=== PATIENT | female | born 1940 | race Caucasian/White ===

== ENCOUNTER → 2017-02-05 | Day surgery (SDC) | payer OTHER, MEDICARE ==
[~2017-02-05] MED LIST: ACETAMINOPHEN 1000 MG/100 ML VIAL IV ONE; ADVAI250I; ALAW0.02 EACH EYE; ALBU6.7H INH; APREPITANT 40 MG CAP ONE; ATOR10TA PO; ISOSULFAN BLUE 50 MG/5 ML VIAL SQ ONE; LACTATED RINGER'S 1000 ML INJ 1,000 ML ONE; LEVO.15 PO; LIDOCAINE 1%/EPINEPHrine 1:100,000 SOLN 50 ML VIAL ONE; MIDAZOLAM HCL 2 MG/2 ML VIAL ONE; MONT10TA2 PO; NEBI5 PO; ONDANSETRON HCL 4 MG/2 ML VIAL IV PUSH ONE; PROPOFOL 200 MG/20 ML AMP IV ONE; REFR0.5D4 EACH EYE; SYSTSOL7 EACH EYE; TRIA1CAP; VANCOMYCIN HCL 1000 MG VIAL ONE; ZOLP1TAB32 PO
--- NOTE | 2017-02-25 08:38 | MP ---
cc: BRAYAN PELAYO MICHAEL A. M.D. YANCY ALLISON M.D. DATE OF SURGERY 02/05/2017 PROCEDURE 1. Excision sentinel lymph nodes right axilla x2. 2. Right breast needle-localized wide local excision. 3. Placement and removal of intraoperative radiotherapy probe. 4. Intraoperative ultrasound PREOPERATIVE DIAGNOSIS Invasive ductal carcinoma right breast. POSTOPERATIVE DIAGNOSIS Invasive ductal carcinoma right breast. ANESTHESIA LMA SURGEON Diallo Hankins MD ESTIMATED BLOOD LOSS 30 mL FLUIDS 1150 mL crystalloid COMPLICATIONS None DRAINS None SPECIMEN [place] lymph nodes right axilla and breast wide local excision to pathology. PROCEDURE IN DETAIL The patient was taken to the Department of Nuclear Medicine where she underwent injection with technetium 99 sulfur colloid. She then returned to the Department of Nuclear Medicine after undergoing needle localization procedure in the right breast and had lymphoscintigraphy mapping. The nodes in the right axilla were noted. The patient was then taken to the operating room and placed on the operating table in the supine position. After an adequate level of general endotracheal anesthesia was achieved, the right breast was prepped with the axilla and draped. Time-out was taken confirming the correct patient, site and procedures to be performed. Dissection was then started on the breast. A circumareolar incision was made in the upper portion of the breast midway between the needle insertion site and the nipple-areolar complex. Dissection was carried out superiorly to the needle which was cut at the skin and brought into the wound. A sphere of tissue was removed down to the muscle keeping the needle in the center as much as possible. The specimen was oriented with silk sutures and passed off the table. Specimen mammogram confirmed the micro clip to be present within the specimen and the lesion to be essentially within the center. An additional deep margin was taken as it was felt that the specimen was slightly eccentric with a question of the deep margin being close. Thus dissection was carried down to the muscle itself. At this point, preparations were made for intraoperative radiotherapy. A #1 Prolene suture was utilized in a deep fashion to create a pursestring suture and create a more spherical cavity. A second suture was placed in the subcutaneous tissues superficially and then 4.5 intraoperative radiotherapy sizing ball was placed into the cavity. The 4.5 insert fit with no openings. The positioning was confirmed with ultrasound with a greater than 1 cm bridge between the skin and the surface of the sphere. Sterile drapes were then placed around the sizer after bringing the instrument in and connecting it to the sizer. There were no air cavities around the sizer and at this point, the more superficial pursestring suture was cinched down. Lead abdullahi were then placed after placing a wet lap over the surface of the skin. The radiation therapist then performed the intraoperative radiotherapy portion of the procedure. Please see their dictation for this. After this was completed, the undersigned scrubbed back into the case, the lead abdullahi and drape were removed. The superficial pursestring suture was cut and the radiotherapy devices probe was removed. The instrument was slid back and the cavity examined and seen to be clean and dry. The deep Prolene suture was removed at this point and the wound closed in two layers with interrupted 3-0 Vicryl suture and 5-0 PDS in a running subcuticular fashion. Attention was then turned to the axilla where an incision was made directly over the area where the lymph nodes were indicated to be located. The dissection was carried down and by guiding with the navigator probe, the lymph nodes were easily identified and excised. The wound was made hemostatic and after no activity in the background was noted, the two lymph nodes were submitted for specimen analysis. The axillary wound was closed in two layers with interrupted 3-0 Vicryl suture and 5-0 PDS in a running subcuticular fashion. Both wounds were dressed with Steri-Strips. The patient was extubated and taken back to the recovery room in stable condition. She tolerated the procedure well. MD ATIF Leger/AFSANEH /7:58 AM /8:27 AM NELL
== END | disposition home or self-care (01) ==
LOC: ESDC 09:40
PROVIDERS: ATTEND Surgery Trauma Surgery
DX: D05.11 Intraductal carcinoma in situ of right breast (principal)
CPT/HCPCS: 00400; 01610; 19125; 38525; 77290; 77300; 77334; 77370; 77424; 88305; 88307; J0131; J2250; J2405; J3010; J3370; J7120; J8501; 77469; Q9968

== ENCOUNTER → 2017-06-24 | Day surgery (SDC) | payer OTHER, MEDICARE ==
[~2017-06-24] VITALS: Ht 154.9 cm; Wt 83.0 kg
[~2017-06-24] MED LIST changes: -ACETAMINOPHEN 1000 MG/100 ML VIAL IV ONE; +ADVA250A INH; -ADVAI250I; +AMBI5TAB PO; +ANAS1TAB PO; -APREPITANT 40 MG CAP ONE; -ATOR10TA PO; +ATOR10TA15 PO; +BUPIVACAINE HCL PF 0.5% 30 ML VIAL ONE; +BYST5TAB2 PO; +CHLORHEXIDINE GLUCONATE 2 % 1 PACK (2 CLOTHS) TOPICAL PRN; +CIPR250T52 PO; +CIPROFLOXACIN 400 MG PREMIX 200 ML IV SCH; +FAMOTIDINE 20 MG/2 ML VIAL ONE; +INSULIN HUMAN REGULAR 1,000 UNITS/10 ML VIAL SQ PRN; -ISOSULFAN BLUE 50 MG/5 ML VIAL SQ ONE; -LACTATED RINGER'S 1000 ML INJ 1,000 ML ONE; +LACTATED RINGER'S 1000 ML IV PRN; -LIDOCAINE 1%/EPINEPHrine 1:100,000 SOLN 50 ML VIAL ONE; +LIDOCAINE 2%/EPINEPHrine PF 1:200,000 20ML SDV ONE; +LIDOCAINE HCL 2% 50 ML VIAL ONE; +METOPROLOL TARTRATE 25 MG TAB PO PRN; -NEBI5 PO; +NEOMYCIN/POLYMYXIN 1 ML G.U. IRRIGANT ONE; +NORC5TAB PO; -ONDANSETRON HCL 4 MG/2 ML VIAL IV PUSH ONE; +POVIDONE IODINE 5% (ANTISEPSIS KIT) 4 APPLICATIONS EACH NARE PRN; -REFR0.5D4 EACH EYE; +REFRDRO EACH EYE; +SODIUM CHLORID 0.9% 500 ML IV PRN; -SYSTSOL7 EACH EYE; -TRIA1CAP; +TRIA37.53 PO; -VANCOMYCIN HCL 1000 MG VIAL ONE; -ZOLP1TAB32 PO
[2017-06-24 07:11] LABS: HEMATOCRIT 39.2 % (35.0-46.0); MEAN CELL VOLUME 82.3 FL (80.0-100.0); MEAN CORPUSCULAR HGB CONC 32.8 % (32.0-36.0); PLATELET COUNT 319 TH/MM3 (150-450); RED BLOOD COUNT 4.76 MIL/MM3 (4.00-5.30); RED CELL DISTRIBUTION WIDTH 12.4 % (11.6-17.2); REVIEW FLAG FINAL; WHITE BLOOD COUNT 8.8 TH/MM3 (4.0-11.0)
--- NOTE | 2017-06-24 09:24 | MP ---
cc: MICHAEL ALONZO III, M.D. DATE OF SURGERY 06/24/2017 PREOPERATIVE DIAGNOSIS Left carpal tunnel syndrome POSTOPERATIVE DIAGNOSIS Left carpal tunnel syndrome PROCEDURE Left open carpal tunnel release. SURGEON Michael Alonzo III, MD PROCEDURE The patient was brought to the operating room, placed supine on the operating table. After the correct site and side of surgery were verified by members of each team multiple times including the patient and myself. After adequate preop markings and preoperative written consent were verified by everyone and after adequate preop time-out was performed to everyone's satisfaction and after adequate IV sedation had been achieved, the left upper extremity was prepped and draped in the traditional sterile surgical fashion. A 50/50 mixture of 2% plain lidocaine, 0.5% plain Marcaine was infiltrated to the skin and subcutaneous tissue at the base of the palm and into the carpal tunnel. The limb was exsanguinated with a gentle Sami wrap and a highly placed well-padded axillary tourniquet was inflated to 200 mmHg for a total of 13 minutes. A longitudinally oriented incision at the base of palm within the skin crease was made and carried down through skin and subcutaneous tissue. Blunt dissection was performed. The palmar fascia was retracted and then a transverse carpal ligament was identified and divided in its midline in its entirety from its proximal to its distal most extent. There was noticeable rebound on the median nerve. There were no other anatomic abnormalities. No mass effect. Thorough irrigation was performed with saline. The skin edges were then reapproximated using running and interrupted 4-0 nylon sutures. The hand and arm were thoroughly cleansed and dried. Betadine and Adaptic dressings were applied on top of the wound followed by a bulky soft dressing circumferential in the usual fashion. The patient was awakened from anesthesia and transported to the Post Anesthesia Care Unit awake and in stable condition at the end of the case. The sponge, needle, and instrument counts were correct at the end of the case as reported by nurses in the room. MD CHRISTINA Johns III/AFSANEH /8:55 AM /9:14 AM
[2017-06-24 09:50] VITALS: BP 142/72; PULSE 74; RESP 16; TEMP 98; O2SAT 97
--- NOTE | 2017-06-24 14:43 | EKG ---
Date Performed: 06/24/2017 Time Performed: 07:17:26 PTAGE: 76 years EKG: Sinus rhythm NORMAL ECG PREVIOUS TRACING : 05/06/2012 09.50 Compared to prior tracing no significant change DOCTOR: Bertha Inman Interpretating Date/Time 06/24/2017 14:42:13
== END | disposition home or self-care (01) ==
LOC: PHSDC 06:09
PROVIDERS: ATTEND Orthopaedic Surgery Hand Surgery
DX: G56.02 Carpal tunnel syndrome, left upper limb (principal); Z01.810 Encounter for preprocedural cardiovascular examination
CPT/HCPCS: 01810; 36415; 64721; 85027; 93005; J0744; J2250; J7120

== ENCOUNTER → 2018-03-24 | Outpatient (CLI) | payer OTHER, MEDICARE ==
[~2018-03-24] MED LIST changes: -BUPIVACAINE HCL PF 0.5% 30 ML VIAL ONE; -CHLORHEXIDINE GLUCONATE 2 % 1 PACK (2 CLOTHS) TOPICAL PRN; -CIPR250T52 PO; -CIPROFLOXACIN 400 MG PREMIX 200 ML IV SCH; -FAMOTIDINE 20 MG/2 ML VIAL ONE; -INSULIN HUMAN REGULAR 1,000 UNITS/10 ML VIAL SQ PRN; -LACTATED RINGER'S 1000 ML IV PRN; -LIDOCAINE 2%/EPINEPHrine PF 1:200,000 20ML SDV ONE; -LIDOCAINE HCL 2% 50 ML VIAL ONE; -METOPROLOL TARTRATE 25 MG TAB PO PRN; -MIDAZOLAM HCL 2 MG/2 ML VIAL ONE; -NEOMYCIN/POLYMYXIN 1 ML G.U. IRRIGANT ONE; -NORC5TAB PO; -POVIDONE IODINE 5% (ANTISEPSIS KIT) 4 APPLICATIONS EACH NARE PRN; -PROPOFOL 200 MG/20 ML AMP IV ONE; -SODIUM CHLORID 0.9% 500 ML IV PRN
--- NOTE | 2018-03-26 08:12 | RSPPFT ---
DATE OF PROCEDURE: 03/24/18 COMMENTS: Spirometry shows FVCof 1.8 at 79% of predicted, FEV1 of 2.2 at 60%, FEV1/FVC ratio is decreased. Flow is decreased at FEF 25, FEF 50, FEF 75 and FEF 25-75. There is no response after bronchodilator treatment. Lung volumes show residual volume is increased. TLC is normal. Diffusion capacity is normal. Flow volume loop indicates an obstructive pattern. IMPRESSION: 1. Mild obstructive lung disease. 2. No response after bronchodilator treatment. 3. Lung volumes show mild hyperinflation. 4. Normal diffusion capacity.
== END ==
LOC: HRSP 12:05
PROVIDERS: ATTEND Specialist
DX: J45.20 Mild intermittent asthma, uncomplicated (principal)
CPT/HCPCS: 94060; 94726; 94729

== ENCOUNTER 2018-08-17 04:54 | Inpatient (IN) ==
[2018-08-17] MEDS ORDERED: Ketorolac Inj 30 MG/ML (IVP) Vial IV.PUSH ONE (05:50)
--- NOTE | 2018-08-17 06:42 | XR ---
EXAM DATE: 08/17/2018 6:21 AM EST AGE/SEX: 77 years / Female INDICATIONS: Knee pain. CLINICAL DATA: This is the patient's initial encounter. Patient reports that signs and symptoms have been present for 1 day and indicates a pain score of 9/10. MEDICAL/SURGICAL HISTORY: Arthritis. Chronic obstructive pulmonary disease. Carcinoma, breast . Asthma. Hypertension. Cholecystectomy. Tubal ligation. Carpal tunnel syndrome. COMPARISON: No prior exams available for comparison. FINDINGS: 4 views of the left knee. Bone alignment within normal limits. No evidence of fracture. Moderate-size d tricompartment osteophytes. Large joint effusion. Moderate patellofemoral compartment narrowing. Po ssible posterior and suprapatellar recess osteochondral bodies. CONCLUSION: 1. Osteoarthritic findings of the knee with patellofemoral compartment predominance. 2. Large joint effusion with possible intra-articular osteochondral bodies. Electronically signed by: Miguel Barker MD 08/17/2018 6:40 AM EST
[2018-08-17 06:44] LABS: Baso % (Auto) 0.3 % (0.0-2.0); Eos # (Auto) 0.2 th/mm3 (0.0-0.4); Eos % (Auto) 1.4 % (0.0-4.0); Hematocrit 37.8 % (35.0-46.0); Lymph # (Auto) 2.1 th/mm3 (1.0-4.8); Lymph % (Auto) 13.9 % (9.0-44.0); Mean Corpuscular HGB Conc 34.5 % (32.0-36.0); Mean Corpuscular Hemoglobin 29.1 pg (27.0-34.0); Mean Corpuscular Volume 84.5 fL (80.0-100.0); Mean Platelet Volume 9.4 fL (7.0-11.0); Mono # (Auto) 1.2 th/mm3 (0.0-0.9); Mono % (Auto) 7.9 % (0.0-8.0); Neut # (Auto) 11.6 th/mm3 (1.8-7.7); Neut % (Auto) 76.5 % (16.0-70.0); Platelet Count 277 th/mm3 (150-450); Red Blood Count 4.47 mil/mm3 (4.00-5.30); Red Cell Distribution Width 13.1 % (11.6-17.2); White Blood Count 15.2 th/mm3 (4.0-11.0)
--- NOTE | 2018-08-17 06:47 | ED ---
HPI General Chief complaint: Medical Clearance Stated complaint: L knee pain Time Seen by Provider: 08/17/18 05:25 Source: patient Limitations: no limitations History of Present Illness HPI narrative: The patient is a 77 year old female who presents to the [facility] emergency department with a history of right knee pain that began yesterday at approximately 5 PM. She reports that she was at work when she started to feel a clicking in her left knee. She denies any trauma or specific injury to the site. She has a history of arthritis, however she has not had problems in this knee in the past. The patient reports that she has been in the process of having worsening back pain and right shoulder pain worked up. She reports that she had an DANYEL done that was positive, however her sedimentation rate at that time was negative and her rheumatoid factor was also negative. Additional laboratory tests have been ordered by her primary care physician which she was going to complete later today. She reports that the knee became increasingly painful. She reports that it became severe in the evening and she took 2 hydrocodone without relief. The patient reports the pain is worse with bending her knee. She reports that it feels swollen and warm to the touch. She denies having any fevers. On review of systems otherwise, the patient denies having any cough, congestion, neck pain, chest pain, shortness of breath, abdominal pain, vomiting, diarrhea, urinary symptoms, or neurologic symptoms. Related Data Home Medications Medication Instructions Recorded Confirmed albuterol sulfate [Proventil HFA] 2 puff INHALATION Q4-6H PRN 08/17/18 08/17/18 albuterol sulfate [Ventolin HFA] 2 puff INHALATION Q4-6H PRN 08/17/18 08/17/18 alprazolam 0.25 mg PO DAILY 08/17/18 08/17/18 atorvastatin 10 mg PO DAILY 08/17/18 08/17/18 atorvastatin [Lipitor] 10 mg PO DAILY 08/17/18 08/17/18 levothyroxine [Synthroid] 150 mcg PO DAILY 08/17/18 08/17/18 montelukast [Singulair] 10 mg PO QPM 08/17/18 08/17/18 nebivolol [Bystolic] 5 mg PO DAILY 08/17/18 08/17/18 triamterene-hydrochlorothiazid 1 cap PO DAILY 08/17/18 08/17/18 zolpidem 10 mg PO DAILY 08/17/18 08/17/18 Allergies Allergy/AdvReac Type Severity Reaction Status Date / Time cefadroxil Allergy Severe HIVES Verified 08/31/17 09:27 morphine Allergy Severe VOMITING Verified 08/31/17 09:27 adhesive AdvReac Intermediate Verified 08/31/17 09:27 Review of Systems ROS: all other systems reviewed are negative [facility] Medical History Medical History Arthritis (Acute) Asthma (Acute) Breast cancer (Acute) COPD (chronic obstructive pulmonary disease) (Acute) Degenerative disc disease (Acute) HTN (hypertension) (Acute) Hypercholesteremia (Acute) Hypothyroid (Acute) Menieres disease (Acute) Surgical History Surgical History H/O lumpectomy (Acute) History of carpal tunnel surgery (Acute) Hx of cholecystectomy (Acute) Social History Social History Substance History: No History of Abuse Second Hand Smoke Exposure: No Smoking Status: Never smoker How Often Do You Have a Drink Containing Alcohol: Never Recent Travel in [facility] within the Last 8 Weeks: No Recent Out of Country Travel within the Last 8 Weeks: No Immunization History Tetanus Immunization: Never Vaccinated Exam Const General: cooperative and acute distress (Reportedly related to left knee pain.) mild Nutritional Appearance: well nourished Orientation: alert, awake and oriented x3 HENMT Head: normocephalic and atraumatic Nose: no nasal discharge and no epistaxis Mouth: moist mucous membranes Throat: posterior oropharynx normal and uvula midline Eyes Sclera: normal sclerae Pupils: PERRL Neck Neck: no meningeal signs, trachea midline and no JVD Resp Effort & Inspection: no use of accessory muscles Auscultation: clear to auscultation bilaterally Cardio Rate: regular rate Rhythm: regular rhythm Heart Sounds: no murmurs GI Inspection: non-distended Palpation: soft, no hepatosplenomegaly, no guarding, not rigid and nontender Auscultation: normal bowel sounds Back/Spine/Pelvis Back: no CVA tenderness Skin General: dry skin (warm) Neuro General: alert, awake, oriented x3 and other (Grossly nonfocal.) Speech: speech normal Motor: no movement abnormalities noted Extrem General: no clubbing, no cyanosis and other (2+ pulses in all 4 extremities. Trace pedal edema bilateral lower extremities. The area of interest is the left knee. The patient reports pain with any attempts at flexion of the left knee. The patient reports having left lateral joint line tenderness on palpation and to a lesser extent medial joint line tenderness on palpation. The patient has no ligament laxity. The patient has no ballotable patella. Patient has some crepitus with attempts at flexion and extension. No deformity noted. No erythema. No warmth on palpation.) Psych Mood: congruent mood Affect: normal affect Judgment: judgment good Course Initial Documented Vital Signs Temperature 97.4 F L 08/17/18 05:03 Pulse Rate 76 08/17/18 05:03 Respiratory Rate 18 08/17/18 05:03 Blood Pressure 170/75 H 08/17/18 05:03 Pulse Oximetry 97 08/17/18 05:03 Last Documented Vital Signs Temperature 99.1 F 08/17/18 16:52 Pulse Rate 73 08/17/18 14:03 Respiratory Rate 18 08/17/18 14:03 Blood Pressure 144/68 H 08/17/18 14:03 Pulse Oximetry 99 08/17/18 14:03 Sign Out Sign Out Data: Patient Sign Out occurred on 08/17/18 at 07:38. Patient's care was discussed, and care was transferred from Kiana Corbett MD to Matt Byers DO. Sign Out Comment: The patient's case is checked out to the oncoming emergency physician to disposition the patient based on the conclusion of the patient's workup. The patient is pending ultrasound, laboratory studies, and reexamination for improvement. Last updated by Kiana Corbett MD at 08/17/18 07:00 Medical Decision Making MDM Narrative Medical decision making narrative: During the course of the patient's emergency department visit, the patient's history, examination, and differential diagnosis were reviewed with the patient. The patient was placed on a fish and game warden with oximetry and frequent blood pressure monitoring. The patient had IV access obtained and blood work sent for analysis. Diagnostic evaluation was started regarding the patient's left knee pain. The patient was initially provided Toradol 15 mg IV. The patient had an x-ray done of the left knee that shows osteoarthritic findings of the knee with patellofemoral compartment predominance, large joint effusion with possible intra-articular osteochondral bodies. The patient is pending laboratory studies and ultrasound to rule out DVT. The patient is pending these results at the conclusion of my shift. The patient's case will be checked out to the oncoming emergency physician to disposition the patient based on the conclusion of her workup. Patient had a arthrosis centesis by IR that revealed pus within the synovial fluid elevated WBCs and markedly elevated RBCs. Discussed with Dr. Wray who decided to take the patient to the OR for surgical intervention. The patient will be admitted to medicine get evaluated. Dr. Wray did not want any antibiotics to be given. Medical Screen Exam Complete: Yes Emergency Medical Condition: Yes Differential Diagnosis Differential Diagnosis: Osteoarthritis, versus inflammatory arthritis, versus septic joint, versus gout, versus internal derangement of the knee, versus stress fracture Medical Records Medical records reviewed: Yes I reviewed the patient's medical records. Lab Data Result diagrams: 08/17/18 05:50 08/17/18 05:50 Lab Results 08/17/18 08/17/18 08/17/18 Range/Units 05:50 05:50 05:50 WBC 15.2 H (4.0-11.0) th/mm3 RBC 4.47 (4.00-5.30) mil/mm3 Hgb 13.0 (11.6-15.3) gm/dL Hct 37.8 (35.0-46.0) % MCV 84.5 (80.0-100.0) fL MCH 29.1 (27.0-34.0) pg MCHC 34.5 (32.0-36.0) % RDW 13.1 (11.6-17.2) % Plt Count 277 (150-450) th/mm3 MPV 9.4 (7.0-11.0) fL Neut % (Auto) 76.5 H (16.0-70.0) % Lymph % (Auto) 13.9 (9.0-44.0) % [place] % (Auto) 7.9 (0.0-8.0) % Eos % (Auto) 1.4 (0.0-4.0) % Baso % (Auto) 0.3 (0.0-2.0) % Neut # (Auto) 11.6 H (1.8-7.7) th/mm3 Lymph # (Auto) 2.1 (1.0-4.8) th/mm3 [place] # (Auto) 1.2 H (0.0-0.9) th/mm3 Eos # (Auto) 0.2 (0.0-0.4) th/mm3 Baso # (Auto) 0.0 (0.0-0.2) th/mm3 WBC Differential . Differential Comment Auto diff final ESR (0-30) mm/hr PT 10.4 (9.8-11.6) sec INR 1.0 Ratio APTT 27.4 (23.4-31.7) sec Sodium 135 L (136-145) meq/L Potassium 3.1 L (3.5-5.1) meq/L Chloride 97 L (98-107) meq/L Carbon Dioxide 28.2 (21.0-32.0) meq/L Anion Gap 10 (5-15) meq/L BUN 18 (7-18) mg/dL Creatinine 0.93 (0.50-1.00) mg/dL Estimated GFR 59 L (>89) mL/min POC Glucose (68-110) mg/dl Random Glucose 154 H (74-106) mg/dL Calcium 8.7 (8.5-10.1) mg/dL Synovial Color (Straw) Synovial Appearance (Clear) Synovial RBC (0-0) /mm3 Synovial Nuc Cells (0-200) /mm3 Synovial Neutrophils (0-25) % Synovial Lymphocytes % Synovial Monocytes % Synovial Crystals (None) 08/17/18 08/17/18 08/17/18 Range/Units 05:50 12:20 12:20 WBC (4.0-11.0) th/mm3 RBC (4.00-5.30) mil/mm3 Hgb (11.6-15.3) gm/dL Hct (35.0-46.0) % MCV (80.0-100.0) fL MCH (27.0-34.0) pg MCHC (32.0-36.0) % RDW (11.6-17.2) % Plt Count (150-450) th/mm3 MPV (7.0-11.0) fL Neut % (Auto) (16.0-70.0) % Lymph % (Auto) (9.0-44.0) % [place] % (Auto) (0.0-8.0) % Eos % (Auto) (0.0-4.0) % Baso % (Auto) (0.0-2.0) % Neut # (Auto) (1.8-7.7) th/mm3 Lymph # (Auto) (1.0-4.8) th/mm3 [place] # (Auto) (0.0-0.9) th/mm3 Eos # (Auto) (0.0-0.4) th/mm3 Baso # (Auto) (0.0-0.2) th/mm3 WBC Differential Differential Comment ESR 35 H (0-30) mm/hr PT (9.8-11.6) sec INR Ratio APTT (23.4-31.7) sec Sodium (136-145) meq/L Potassium (3.5-5.1) meq/L Chloride (98-107) meq/L Carbon Dioxide (21.0-32.0) meq/L Anion Gap (5-15) meq/L BUN (7-18) mg/dL Creatinine (0.50-1.00) mg/dL Estimated GFR (>89) mL/min POC Glucose (68-110) mg/dl Random Glucose (74-106) mg/dL Calcium (8.5-10.1) mg/dL Synovial Color Red H (Straw) Synovial Appearance Bloody H (Clear) Synovial RBC 8189281 H (0-0) /mm3 Synovial Nuc Cells 55496 H (0-200) /mm3 Synovial Neutrophils 90 H (0-25) % Synovial Lymphocytes 3 % Synovial Monocytes 7 % Synovial Crystals None (None) 08/17/18 Range/Units 18:19 WBC (4.0-11.0) th/mm3 RBC (4.00-5.30) mil/mm3 Hgb (11.6-15.3) gm/dL Hct (35.0-46.0) % MCV (80.0-100.0) fL MCH (27.0-34.0) pg MCHC (32.0-36.0) % RDW (11.6-17.2) % Plt Count (150-450) th/mm3 MPV (7.0-11.0) fL Neut % (Auto) (16.0-70.0) % Lymph % (Auto) (9.0-44.0) % [place] % (Auto) (0.0-8.0) % Eos % (Auto) (0.0-4.0) % Baso % (Auto) (0.0-2.0) % Neut # (Auto) (1.8-7.7) th/mm3 Lymph # (Auto) (1.0-4.8) th/mm3 [place] # (Auto) (0.0-0.9) th/mm3 Eos # (Auto) (0.0-0.4) th/mm3 Baso # (Auto) (0.0-0.2) th/mm3 WBC Differential Differential Comment ESR (0-30) mm/hr PT (9.8-11.6) sec INR Ratio APTT (23.4-31.7) sec Sodium (136-145) meq/L Potassium (3.5-5.1) meq/L Chloride (98-107) meq/L Carbon Dioxide (21.0-32.0) meq/L Anion Gap (5-15) meq/L BUN (7-18) mg/dL Creatinine (0.50-1.00) mg/dL Estimated GFR (>89) mL/min POC Glucose 144 H (68-110) mg/dl Random Glucose (74-106) mg/dL Calcium (8.5-10.1) mg/dL Synovial Color (Straw) Synovial Appearance (Clear) Synovial RBC (0-0) /mm3 Synovial Nuc Cells (0-200) /mm3 Synovial Neutrophils (0-25) % Synovial Lymphocytes % Synovial Monocytes % Synovial Crystals (None) Imaging Data Radiologist's impression: Knee X-Ray 08/17/18 05:49 CONCLUSION: 1. Osteoarthritic findings of the knee with patellofemoral compartment predominance. 2. Large joint effusion with possible intra-articular osteochondral bodies. Venous Doppler Study 08/17/18 05:49 CONCLUSION: 1. The study is negative for lower extremity deep venous thrombosis. Knee CT 08/17/18 07:39 CONCLUSION: 1. Advanced tricompartmental osteoarthritis. 2. Moderate joint effusion. 3. Faint calcifications could relate to free bodies within the joint. I see no ostial defect but CT is very limited in evaluating for cartilaginous defects. MRI is more sensitive and specific for this evaluation. Aspiration 08/17/18 11:36 CONCLUSION: Uncomplicated ultrasound-guided left knee joint aspiration as above. ECG Data Attestation: I personally reviewed and interpreted this ECG as follows: Interpretation: The patient had an EKG done on arrival that shows a sinus rhythm heart rate is 77, TC [address] segment elevation is noted. T waves are inverted in V1. Discharge Plan Discharge Disposition Patient Disposition: 30 Still Patient Discharge Condition Condition: Stable Discharge Details Diagnosis: Septic arthritis Physicians Team ED Provider: Matt Byers Primary Care Provider: Primary Care Darlene Miller Attending Provider: Jessica Irwin Other Providers: Pablo Wray Status ED Status: Admitted Observation Patient
[2018-08-17 06:52] LABS: Activated Partial Thrombo Time 27.4 sec (23.4-31.7); Prothrombin Time 10.4 sec (9.8-11.6)
[2018-08-17 06:59] LABS: Calcium 8.7 mg/dL (8.5-10.1); Carbon Dioxide 28.2 meq/L (21.0-32.0); Potassium 3.1 meq/L (3.5-5.1)
--- NOTE | 2018-08-17 07:48 | US ---
EXAM DATE: 08/17/2018 7:40 AM EST AGE/SEX: 77 years / Female INDICATIONS: Left knee pain. CLINICAL DATA: This is the patient's initial encounter. Patient reports that signs and symptoms have been present for 1 day and indicates a pain score of 4/10. MEDICAL/SURGICAL HISTORY: . Right breast cancer. COPD. Hypertension. Hypothyroidism. Meniere's disease. Arthritis. Asthma. Cholecystectomy. Lumpectomy, right breast. Carpal tunnel surgery. COMPARISON: [facility], US LEG VENOUS DOPPLER, RIGHT, 02/19/2018. . TECHNIQUE: Venous ultrasound of both lower extremities was performed from the inguinal ligament to t he proximal calf. Real-time, color Doppler and spectral tracing, compression and augmentation techni ques were used. FINDINGS: Normal compression of the deep venous system from the inguinal region to the proximal calf . No echogenic clot is seen. Normal response of the venous system to augmentation and respiration. CONCLUSION: 1. The study is negative for lower extremity deep venous thrombosis. Electronically signed by: Chele Shelby MD 08/17/2018 7:47 AM EST
--- NOTE | 2018-08-17 08:42 | CT ---
EXAM DATE: 08/17/2018 8:23 AM EST AGE/SEX: 77 years / Female INDICATIONS: Left suprapatellar pain and swelling. Abnormal x-ray. No known trauma. CLINICAL DATA: This is the patient's initial encounter. Patient reports that signs and symptoms have been present for 1 day and indicates a pain score of 7/10. MEDICAL/SURGICAL HISTORY: Carcinoma, breast. Chronic obstructive pulmonary disease. Hypertension. Meniere's disease. None. RADIATION DOSE: 9.50 CTDI (mGy) COMPARISON: [facility], KNEE COMPLETE LEFT 4V, 08/17/2018.. . TECHNIQUE: Multiple contiguous axial images were acquired using a multirow detector CT scanner witho ut contrast. Multiplanar reconstruction was performed in the sagittal and coronal planes. Using aut omated exposure control and adjustment of the mA and/or kV according to patient size, radiation dose was kept as low as reasonably achievable to obtain optimal diagnostic quality images. DICOM format i mage data is available electronically for review and comparison. FINDINGS: No fracture or dislocation observed. There is tricompartmental osteoarthritis with joint space narrow ing and osteophyte production. It is most pronounced within the patellofemoral compartment but does i nvolve all 3 compartments. There are faint calcifications seen amongst a moderate size joint effusion within the suprapatella area. The largest measures 4 mm. These could relate to free bodies within th e joint space. I see no clear ostial defect. Faint calcification is seen involving the menisci as wel l as the posterior cruciate ligament. Atherosclerotic calcification is noted involving popliteal mouna ry. No radiopaque foreign bodies. CONCLUSION: 1. Advanced tricompartmental osteoarthritis. 2. Moderate joint effusion. 3. Faint calcifications could relate to free bodies within the joint. I see no ostial defect but CT is very limited in evaluating for cartilaginous defects. MRI is more sensitive and specific for this evaluation. Electronically signed by: Chele Shelby MD 08/17/2018 8:40 AM EST
[2018-08-17] MEDS ORDERED: Lidocaine PF 1% Inj 30 ML Vial INFILTRATN ONE (09:52)
--- NOTE | 2018-08-17 13:18 | ECG ---
Date Performed: 08/17/2018 Time Performed: 06:03:47 PTAGE: 77 years EKG: Sinus rhythm MARKED LEFT AXIS DEVIATION POSSIBLE ANTERIOR MYOCARDIAL INFARCTION ABNORMAL ECG Since the PREVIOUS TRACING , no significant change noted PREVIOUS TRACIN06/24/2017 07.17 DOCTOR: Katia Montoya Interpretating Date/Time 08/17/2018 13:17:25
[2018-08-17 13:53] LABS: Appearance,Synovial Fluid Bloody (Clear); Color,Synovial Fluid Red (Straw)
[2018-08-17 13:56] LABS: Lymphocytes,Synovial Fluid 3 %; Neutrophils,Synovial Fluid 90 % (0-25)
--- NOTE | 2018-08-17 15:20 | IR ---
EXAM DATE: 08/17/2018 12:49 PM EST AGE/SEX: 77 years / Female INDICATIONS: Patient with a history of left knee effusion. CLINICAL DATA: This is the patient's initial encounter. Patient reports that signs and symptoms have been present for 2 days and indicates a pain score of 6/10. MEDICAL/SURGICAL HISTORY: . Arthritis Asthma Breast Cancer COPD Degenerative Disc DiseaseHTNHyp ercholesteremiaHypothyroidMenieres disease . Lumpectomy Carpal tunnel surgery Cholecystectomy COMPARISON: [facility] [place]/O [place], 08/17/2018. . FLUORO TIME (min): 0 IMAGE SERIES: 1 DEVICE(S): 25 gauge needle was placed into the Left knee joint RESPONSE: Pain Score Pre Procedure: 6/10 Pain Score Post Procedure: 0/10 FLUID: Total volume of 25 cc of clear, red fluid was removed. Fluid was sent to lab for ordered studies. . . PROCEDURE : 1. Fluoroscopically guided left knee joint aspiration. The risks, benefits and alternatives to the procedure were explained and verbal and written consent w as obtained. The site was prepped in sterile fashion. Full sterile technique was used, including ca p, mask, sterile gloves and gown and a large sterile sheet. Hand hygiene and 2% chlorhexidine and/or betadine/alcohol prep was utilized per protocol for cutaneous antisepsis. The skin and subcutaneous tissues were infiltrated with local anesthetic solution. Under direct ultrasound guidance, the suprapatellar bursa was accessed with an 18-gauge needle from a lateral suprapatellar approach. Approximately 25 mL's of bloody joint fluid was aspirated and submit juventino for requested lab evaluation. The patient tolerated the procedure well and there were no complications. CONCLUSION: Uncomplicated ultrasound-guided left knee joint aspiration as above. Electronically signed by: Shine Munguia MD 08/17/2018 3:18 PM EST
[2018-08-17] MEDS ORDERED: Dextrose 50% in Water 50 ML Vial IV.PUSH ONE (17:03)
--- NOTE | 2018-08-17 18:18 | P.CONOP ---
[facility] Orthopedics Consult Note - [facility] Consult date: 08/17/18 Chief complaint: L knee pain Narrative: This is a 77-year-old female who presented to [facility] emergency room with points of left knee pain. The patient states that the knee pain just began yesterday. She started feeling a clicking about the knee. She denies any injuries or wounds about the knee. She denies having other sources of pain in the body or other sources of infection such as a productive cough or urinary problems. Patient when she presented to the hospital was found to have a knee joint effusion and significant loss of range of motion. ER physician had contacted us we recommended to have an aspiration of the knee because the patient had increased ESR and increased white cell count and we were concerned about a possible septic knee. The patient denies having history of rheumatoid arthritis but does say that she has generalized arthritis. The patient did have the aspiration which was suspicious for infection. She has difficulty ambulating because of the pain. She says the pain is so bad that is causing her to be nauseous. Family history is noncontributory. Daughter is at the bedside. 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 Review of Systems All other systems reviewed negative except as stated in HPI (Note that she denies fevers), unobtainable due to endotracheal tube PMFSH - History History Provided By: Patient - Medical History Medical History: Medical History (Last Updated 08/17/18 @ 06:40 by Kiana Corbett MD) Arthritis Asthma Breast cancer COPD (chronic obstructive pulmonary disease) Degenerative disc disease HTN (hypertension) Hypercholesteremia Hypothyroid Menieres disease - Surgical History Surgical History: Surgical History (Last Reviewed 08/17/18 @ 06:39 by Kiana Corbett MD) H/O lumpectomy History of carpal tunnel surgery Hx of cholecystectomy - Tobacco History Second Hand Smoke Exposure: No Tobacco Use In Past 30 Days: No Smoking Status: Never smoker - Alcohol History How Often Do You Have a Drink Containing Alcohol: Never - Substance Use History Substance History: No History of Abuse - Travel History Recent Travel in the [place] Within the Last 8 Weeks: No Recent Travel Out of the Country Within the Last 8 Weeks: No - Immunization History Tetanus Immunization: Never Vaccinated Medications and Allergies Allergies Allergy/AdvReac Type Severity Reaction Status Date / Time cefadroxil Allergy Severe HIVES Verified 08/31/17 09:27 morphine Allergy Severe VOMITING Verified 08/31/17 09:27 adhesive AdvReac Intermediate Verified 08/31/17 09:27 Home Medications Medication Instructions Recorded Confirmed Type albuterol sulfate [Proventil HFA] 2 puff INHALATION Q4-6H PRN 08/17/18 08/17/18 History albuterol sulfate [Ventolin HFA] 2 puff INHALATION Q4-6H PRN 08/17/18 08/17/18 History alprazolam 0.25 mg PO DAILY 08/17/18 08/17/18 History atorvastatin 10 mg PO DAILY 08/17/18 08/17/18 History atorvastatin [Lipitor] 10 mg PO DAILY 08/17/18 08/17/18 History levothyroxine [Synthroid] 150 mcg PO DAILY 08/17/18 08/17/18 History montelukast [Singulair] 10 mg PO QPM 08/17/18 08/17/18 History nebivolol [Bystolic] 5 mg PO DAILY 08/17/18 08/17/18 History triamterene-hydrochlorothiazid 1 cap PO DAILY 08/17/18 08/17/18 History zolpidem 10 mg PO DAILY 08/17/18 08/17/18 History Exam Vital signs: Vital Signs 08/17/18 05:03 08/17/18 05:49 08/17/18 07:55 Temperature 97.4 F L Pulse Rate 76 78 67 Respiratory Rate 18 18 Blood Pressure 170/75 H 168/71 H 151/67 H Pulse Oximetry 97 96 97 08/17/18 14:03 08/17/18 16:52 Temperature 99.1 F Pulse Rate 73 Respiratory Rate 18 Blood Pressure 144/68 H Pulse Oximetry 99 Intake & Output 08/16/18 08/17/18 08/17/18 18:59 06:59 18:59 Weight 86.581 kg Narrative: GENERAL: The patient is awake, alert and oriented x3. The patient is no significant distress. PSYCHIATRIC: Normal affect, insight, and judgment. HEENT: Head is atraumatic. Oropharynx is moist. Extraocular muscles are intact. NECK: Non-tender and supple. LUNGS: No audible wheezing. He has normal inspiratory effort with no signs of dyspnea HEART: Regular rate and rhythm. ABDOMEN: Soft, nontender, and nondistended. BACK: No CVA tenderness. EXTREMITIES/SKIN/NEURO/VASCULAR: The left knee has no wounds. Left knee has significant loss of range of motion due to pain. There is diffuse swelling about the knee. There is previous puncture site with a Band-Aid on top. There is no erythema. She does have swelling in the pretibial region of the lower leg on the left side of a 1-2+ nature. There is a 2+ dorsalis pedis pulse. She has normal sensation distally. Her leg does not have significant swelling about the knee. Results - Labs Result Diagrams: 08/17/18 05:50 08/17/18 05:50 Labs: Laboratory Results - last 24 hr 08/17/18 08/17/18 08/17/18 05:50 05:50 05:50 WBC 15.2 H RBC 4.47 Hgb 13.0 Hct 37.8 MCV 84.5 MCH 29.1 MCHC 34.5 RDW 13.1 Plt Count 277 MPV 9.4 Neut % (Auto) 76.5 H Lymph % (Auto) 13.9 Linn % (Auto) 7.9 Eos % (Auto) 1.4 Baso % (Auto) 0.3 Neut # (Auto) 11.6 H Lymph # (Auto) 2.1 Linn # (Auto) 1.2 H Eos # (Auto) 0.2 Baso # (Auto) 0.0 WBC Differential . Differential Comment Auto diff final ESR PT 10.4 INR 1.0 APTT 27.4 Sodium 135 L Potassium 3.1 L Chloride 97 L Carbon Dioxide 28.2 Anion Gap 10 BUN 18 Creatinine 0.93 Estimated GFR 59 L Random Glucose 154 H Calcium 8.7 Synovial Color Synovial Appearance Synovial RBC Synovial Nuc Cells Synovial Neutrophils Synovial Lymphocytes Synovial Monocytes Synovial Crystals 08/17/18 08/17/18 08/17/18 05:50 12:20 12:20 WBC RBC Hgb Hct MCV MCH MCHC RDW Plt Count MPV Neut % (Auto) Lymph % (Auto) Linn % (Auto) Eos % (Auto) Baso % (Auto) Neut # (Auto) Lymph # (Auto) Linn # (Auto) Eos # (Auto) Baso # (Auto) WBC Differential Differential Comment ESR 35 H PT INR APTT Sodium Potassium Chloride Carbon Dioxide Anion Gap BUN Creatinine Estimated GFR Random Glucose Calcium Synovial Color Red H Synovial Appearance Bloody H Synovial RBC 2987205 H Synovial Nuc Cells 15201 H Synovial Neutrophils 90 H Synovial Lymphocytes 3 Synovial Monocytes 7 Synovial Crystals None - Diagnostic results Imaging: Impressions Knee X-Ray 08/17/18 05:49 CONCLUSION: 1. Osteoarthritic findings of the knee with patellofemoral compartment predominance. 2. Large joint effusion with possible intra-articular osteochondral bodies. I have reviewed the images for this radiology study. I agree with the interpretation given by the radiologist. Venous Doppler Study 08/17/18 05:49 CONCLUSION: 1. The study is negative for lower extremity deep venous thrombosis. Knee CT 08/17/18 07:39 CONCLUSION: 1. Advanced tricompartmental osteoarthritis. 2. Moderate joint effusion. 3. Faint calcifications could relate to free bodies within the joint. I see no ostial defect but CT is very limited in evaluating for cartilaginous defects. MRI is more sensitive and specific for this evaluation. Aspiration 08/17/18 11:36 CONCLUSION: Uncomplicated ultrasound-guided left knee joint aspiration as above. Assessment and Plan - Assessment and Plan Left knee highly suspicious for septic arthritis. Left knee arthritis This patient has an elevated white cell count with increased neutrophil percentage on her blood count, she has an elevated ESR. Her aspiration of the knee showed 25,000 white blood cells with an increase 90% neutrophil percentage. We are still pending the Gram stain. Based on these images and labs I do feel that there is a very high suspicion for septic arthritis of the left knee. This appears to be acute in nature without chronic osteomyelitis. We discussed the diagnosis of the infection affecting this patient's extremity. Nonoperative and operative options were discussed and reviewed. Potential consequences of both of these options were reviewed. Nonoperative options include the use of anti-biotics and observation. Nonoperative management does include significant risks of continued infection or worsening infection which can lead to sepsis and long-term dysfunction of the extremity. The patient would like to move forward with urgent surgical management for this condition. The surgery will consist of a left knee arthrotomy with irrigation and debridement and likely placement of a drain. We discussed the long-term consequences of this surgery and the typical hospital stay that is necessary for this type of condition. We discussed the need for intravenous antibiotics postoperatively. This is surgery should be considered non-elective, given that this patient presented emergently to the hospital, and the decision to proceed with surgery was derived from this presentation. Significantly delaying surgery (other than for medical clearance) has the potential to adversly effect the outcome for this patient's extermity. Management of pain associated with surgery will likely require the use of parental controlled substances. The risks and benefits of surgical management have been discussed in detail. The risks of surgery include, but are not limited to, injury to nerves, blood vessels, bleeding, continued infection, non-healing; loss of range on motion, dysfunction or weakness of the associated joints; blood clots, pneumonia, stroke, heart attack, and . - Attending Attestation Attending Attestation: A mid level provider in my office, nurse practitioner or PA, may see this patient on a follow up basis and continue to implement the plan including: starting or adjusting medications, injections of muscle, tendons, bursa or joints, cast application, orthotic or brace application, physical therapy, further radiographic studies including X-ray, MRI, CT, ultrasound or bone scan , vascular studies, neurological studies, or other specialist consultations, and proceeding with surgical management as appropriate.
[2018-08-17] MEDS ORDERED: Phenylephrine/NS 1000 MCG/10ML Syringe IV.PUSH ONE (19:47)
[2018-08-17] MEDS ORDERED: Lidocaine PF 1% Inj 5 ML Syringe OTHER ONE (19:47)
[2018-08-17] MEDS ORDERED: Clindamycin Inj 600 MG/4 ML Vial ONE (20:19)
[2018-08-17] MEDS ORDERED: Bisacodyl 10 MG Supp RECTAL PRN (20:45)
[2018-08-17] MEDS ORDERED: Vancomycin Consult Pharmacy 1 EACH OTHER SCH (20:45)
[2018-08-17] MEDS ORDERED: Post-op Orders (for Pharmacy) OTHER STA (20:45)
[2018-08-17] MEDS ORDERED: Aluminum/Magnesium/Simethacone Susp 30 ML UDC PO PRN (20:45)
--- NOTE | 2018-08-17 20:55 | P.OP ---
Preoperative Diagnosis: Left knee septic arthritis Postoperative Diagnosis: Same Date of procedure: 08/17/18 Procedure: Left knee arthrotomy with washout for septic knee Anesthesia: GETA Surgeon: Pablo Wray MD Operation and Findings: Tourniquet time 0 minutes. Estimated blood loss 30 cc. The patient was brought back to the operative theater. General anesthesia was administered. We held antibiotics until further cultures could be taken. The left lower extremity was prepped and draped in usual sterile fashion. We made standard anterior incision over the medial retinaculum of the knee. We dissected down to the medial retinaculum and achieved hemostasis. We incised through the retinaculum for the arthrotomy and expressed approximately 40 cc of bloody fluid which was cloudy. We took cultures x2 of this fluid. We then thoroughly irrigated the knee with 3 L of saline laden with antibiotics. We exchanged gloves and instruments. The synovium appeared to be inflamed but no necrosis was noted. We placed a deep drain intra-articular. We closed the medial retinaculum with #1 PDS followed by 2-0 Monocryl for skin and diallo. We sewed the drain into place. Dressings were applied. Postoperative plan is for weight-bear as tolerated. Infectious disease consultation for intravenous antibiotics. Continue drain until output decreases. DVT prophylaxis with baby aspirin.
[2018-08-17] MEDS ORDERED: *Meperidine Inj 25 MG/ML Vial PERIprocedural Use ONLY ONE (20:57)
[2018-08-17] MEDS ORDERED: Vancomycin Inj 1 GM/200 ML PIGGYBACK IV.SIG SCH (21:00)
[2018-08-17] MEDS ORDERED: fentaNYL Citrate Inj 100 MCG/2 ML Ampul ONE ×2 (21:02→21:03)
[2018-08-17] MEDS ORDERED: *HYDROmorphone PF Inj 1 MG/ML Ampul PERIprocedural Use ONLY ONE ×2 (21:18→21:35)
--- NOTE | 2018-08-17 22:30 | P.HPIM ---
History of Present Illness Service: [facility] Primary Care Physician: No Primary Care Physician Chief Complaint: Left knee pain History of Present Illness: 77-year-old female with history of arthritis, hyperlipidemia, Mnire's disease , hypothyroid, COPD, breast cancer and hypertension presented to the ED with complaints of left knee pain. Patient states behaving began yesterday and she felt a clicking sensation in the knee, with associated difficulty with ambulation. On arrival to the ED patient was found to have a left knee joint effusion and loss of range of motion. Patient was taken to the OR by Dr. Suazo who did an Left knee arthrotomy with washout for septic knee. Patient was seen status post OR. She states the pain was a 10/10 prior to coming in and now is down to a 7/10, not much relief with the norco. She denies any associated symptoms, no chest pain, sob, fever or chills. Inpatient Certification Inpatient Certification: I certify that the inpatient services were ordered in accordance with Medicare regulations governing the order. This includes certification that hospital inpatient services are reasonable and necessary and in the case of services not specified as inpatient-only under 42 CFR 419.22(n), that they are appropriately provided as inpatient services in accordance to with the 2-midnight benchmark under 43 CFR 412.3(e) Estimated Total Length of Stay (Days): 2 Plans for Post Hospital Care: Home Review of Systems Review of Systems: all other systems reviewed are negative [facility] Medical History Medical History Arthritis (Acute) Asthma (Acute) Breast cancer (Acute) COPD (chronic obstructive pulmonary disease) (Acute) Degenerative disc disease (Acute) HTN (hypertension) (Acute) Hypercholesteremia (Acute) Hypothyroid (Acute) Menieres disease (Acute) Surgical History Surgical History H/O lumpectomy (Acute) History of carpal tunnel surgery (Acute) Hx of cholecystectomy (Acute) Family History Family History Other No significant family history Social History Social History Substance History: No History of Abuse Second Hand Smoke Exposure: Yes Smoking Status: Never smoker How Often Do You Have a Drink Containing Alcohol: Never Recent Travel in [place] within the Last 8 Weeks: No Recent Out of Country Travel within the Last 8 Weeks: No Immunization History Tetanus Immunization: Never Vaccinated Medications and Allergies Allergies Allergy/AdvReac Type Severity Reaction Status Date / Time cefadroxil Allergy Severe HIVES Verified 08/31/17 09:27 morphine Allergy Severe VOMITING Verified 08/31/17 09:27 adhesive AdvReac Intermediate Verified 08/31/17 09:27 Home Medications Medication Instructions Recorded Confirmed Type albuterol sulfate [Proventil HFA] 2 puff INHALATION Q4-6H PRN 08/17/18 08/17/18 History albuterol sulfate [Ventolin HFA] 2 puff INHALATION Q4-6H PRN 08/17/18 08/17/18 History alprazolam 0.25 mg PO DAILY 08/17/18 08/17/18 History atorvastatin 10 mg PO DAILY 08/17/18 08/17/18 History atorvastatin [Lipitor] 10 mg PO DAILY 08/17/18 08/17/18 History levothyroxine [Synthroid] 150 mcg PO DAILY 08/17/18 08/17/18 History montelukast [Singulair] 10 mg PO QPM 08/17/18 08/17/18 History nebivolol [Bystolic] 5 mg PO DAILY 08/17/18 08/17/18 History triamterene-hydrochlorothiazid 1 cap PO DAILY 08/17/18 08/17/18 History zolpidem 10 mg PO DAILY 08/17/18 08/17/18 History Active Medications: Active Medications Acetaminophen (Tylenol) 650 mg PO Q4H PRN PRN Reason: Temp > 100.4 Hydrocodone Bitart/Acetaminophen ([place] 5/325) 1 tab PO Q4H PRN PRN Reason: PAIN LESS THAN 5 ON SCALE Hydrocodone Bitart/Acetaminophen ([place] 5/325) 2 tab PO Q6H PRN PRN Reason: PAIN SCALE 5 TO 10 Al Hydrox/Mg Hydrox/Simethicone (Mag-Al Plus Susp Liq) 30 ml PO Q6H PRN PRN Reason: INDIGESTION Al Hydroxide/Mg Hydroxide (Milk Of Magnesia Liq) 30 ml PO BID PRN PRN Reason: Mild Constipation Aspirin (Aspirin Chew) 81 mg PO BID [facility] Bisacodyl (Dulcolax Supp) 10 mg RECTAL DAILY PRN PRN Reason: SEVERE CONSITIPATION Diphenhydramine HCl (Benadryl) 25 mg PO Q6H PRN PRN Reason: ITCHING Hydromorphone HCl (Dilaudid Pf Inj) 1 mg IV.PUSH Q3H PRN PRN Reason: BREAKTHROUGH PAIN Lactated Ringer's (Lr 1000 Ml Inj) 1,000 mls @ 80 mls/hr IV.CONT .[id number] [facility] Last Admin: 08/17/18 21:25 Dose: 80 mls/hr Pharmacy Profile Note (Vancomycin Consult Pharmacy) 0 mls @ 0 mls/hr OTHER UNSCH [facility] Clindamycin/Sodium Chloride (Cleocin 600 Mg/Ns Premix) 600 mg in 50 mls @ 100 mls/hr IV.SIG Q6H [facility] Stop: 08/18/18 20:29 Vancomycin HCl 1,500 mg/ (Sodium Chloride) 515 mls @ 250 mls/hr IV.SIG Q24H [facility] Lactulose (Lactulose Liq) 30 ml PO DAILY PRN PRN Reason: SEVERE CONSITIPATION Miscellaneous Information ([facility] Nursing Information) 1 each OTHER UNSCH PRN PRN Reason: SEE LABEL COMMENTS Stop: 08/18/18 20:55 Miscellaneous Information ([facility] Ordered Lab Info) 0 each OTHER ONCE ONE Stop: 08/20/18 21:46 Multivitamins/Minerals (Theragran-M) 1 tab PO BID [facility] Stop: 10/16/18 20:59 Ondansetron HCl (Zofran Inj) 4 mg IV.PUSH Q6H PRN PRN Reason: NAUSEA OR VOMITING Ondansetron HCl (Zofran Inj) 4 mg IV.PUSH Q6H PRN PRN Reason: NAUSEA OR VOMITING Senna/Docusate Sodium (Kanika-Colace) 1 tab PO BID [facility] Sennosides (Senokot) 17.2 mg PO BID PRN PRN Reason: Moderate Constipation Sodium Chloride (Ns Flush) 2 ml IV.FLUSH BID [facility] Sodium Chloride (Ns Flush) 2 ml IV.FLUSH PRN PRN PRN Reason: FLUSH AFTER USING IV ACCESS Zolpidem Tartrate (Ambien) 5 mg PO HS PRN PRN Reason: INSOMNIA Physical Exam Vital signs: Last Vital Signs Temp 98.6 F 08/17/18 20:55 Pulse 88 08/17/18 21:45 Resp 18 08/17/18 22:12 BP 154/70 H 08/17/18 21:45 Pulse Ox 98 08/17/18 21:45 Intake & Output 08/15/18 08/16/18 08/17/18 08/18/18 06:59 06:59 06:59 06:59 Intake Total 800 / 800 Output Total 30 / 30 Balance 770 / 770 Weight 86.581 kg Narrative: GENERAL: This is a well-nourished, well-developed patient, in no apparent distress. SKIN: Warm, dry, lizzy wrap to left, bulb drain in place draining sanguinous fluid EYES: Pupils equal round and reactive, no scleral edema or drainage CARDIOVASCULAR: Regular rate and rhythm without murmurs, gallops, or rubs. RESPIRATORY: Clear to auscultation. Breath sounds equal bilaterally. No wheezes , rales, or rhonchi. GASTROINTESTINAL: Abdomen soft, non-tender, nondistended. Normal active bowel sounds MUSCULOSKELETAL: Extremities without clubbing, cyanosis. Mild edema to left knee , limited ROM. NEURO: Alert & Oriented x4 to person, place, time, situation. Results Labs CBC & Chem 7: 08/17/18 05:50 08/17/18 05:50 Imaging Impressions Knee X-Ray 08/17/18 05:49 CONCLUSION: 1. Osteoarthritic findings of the knee with patellofemoral compartment predominance. 2. Large joint effusion with possible intra-articular osteochondral bodies. Venous Doppler Study 08/17/18 05:49 CONCLUSION: 1. The study is negative for lower extremity deep venous thrombosis. Knee CT 08/17/18 07:39 CONCLUSION: 1. Advanced tricompartmental osteoarthritis. 2. Moderate joint effusion. 3. Faint calcifications could relate to free bodies within the joint. I see no ostial defect but CT is very limited in evaluating for cartilaginous defects. MRI is more sensitive and specific for this evaluation. Aspiration 08/17/18 11:36 CONCLUSION: Uncomplicated ultrasound-guided left knee joint aspiration as above. Caprini VTE Risk Assessment Caprini VTE Risk Assessment: No/Low Risk (score <= 1) Caprini Risk Assessment Model: Point Value = 1 Point Value = 2 Point Value = 3 Point Value = 5 Age 41-60 Minor surgery BMI > 25 kg/m2 Swollen legs Varicose veins or History of unexplained or recurrent spontaneous Oral contraceptives or hormone replacement Sepsis (< 1 month) Serious lung disease, including pneumonia (< 1 month) Abnormal pulmonary function Acute myocardial infarction Congestive heart failure (< 1 month) History of inflammatory bowel disease Medical patient at bed rest Age 61-74 Arthroscopic surgery Major open surgery (> 45 min) Laparoscopic surgery (> 45 min) Malignancy Confined to bed (> 72 hours) Immobilizing plaster cast Central venous access Age >= 75 History of VTE Family history of VTE Factor V Leiden Prothrombin 82560C Lupus anticoagulant Anticardiolipin antibodies Elevated serum homocysteine Heparin-induced thrombocytopenia Other congenital or acquired thrombophilia Stroke (< 1 month) Elective arthroplasty Hip, pelvis, or leg fracture Acute spinal cord injury (< 1 month) Prophylaxis Regimen: Total Risk Factor Score Risk Level Prophylaxis Regimen 0-1 Low Early ambulation 2 Moderate Order ONE of the following: *Sequential Compression Device (SCD) *Heparin 5000 units SQ BID 3-4 Higher Order ONE of the following medications: *Heparin 5000 units SQ TID *Enoxaparin/Lovenox 40 mg SQ daily (WT < 150 kg, CrCl > 30 mL/min) *Enoxaparin/Lovenox 30 mg SQ daily (WT < 150 kg, CrCl > 10-29 mL/min) *Enoxaparin/Lovenox 30 mg SQ BID (WT < 150 kg, CrCl > 30 mL/min) AND/OR *Sequential Compression Device (SCD) 5 or more Highest Order ONE of the following medications: *Heparin 5000 units SQ TID (Preferred with Epidurals) *Enoxaparin/Lovenox 40 mg SQ daily (WT < 150 kg, CrCl > 30 mL/min) *Enoxaparin/Lovenox 30 mg SQ daily (WT < 150 kg, CrCl > 10-29 mL/min) *Enoxaparin/Lovenox 30 mg SQ BID (WT < 150 kg, CrCl > 30 mL/min) AND *Sequential Compression Device (SCD) Assessment and Plan Plan 77-year-old female with history of arthritis, hyperlipidemia, Mnire's disease , hypothyroid, COPD, breast cancer and hypertension presented to the ED with complaints of left knee pain. Septic arthritis, wbc 15.2 Orthopedics was consulted, Dr. Suazo took patient to the OR for Left knee arthrotomy with washout for septic knee -Pain management with PO [place] and IV morphine -Clindamycin IV per ortho -PT eval -Cultures pending -ID consulted by Ortho HLD, chronic -Resume home medications -Cardiac diet Hypothyroid, chronic -Resume home medications HTN, chronic -Resume home medications -Monitor vitals DVT prophylaxis: SCDs
[2018-08-17] MEDS: Multivitamin/Minerals Therapeutic Tablet PO SCH (22:41)
[2018-08-17] MEDS: Senna/Docusate Sodium 8.6/50 MG Tablet PO SCH (22:42)
[2018-08-18] MEDS ORDERED: HYDROmorphone PF Inj 1 MG/ML Ampul IV.PUSH PRN (01:15)
[2018-08-18] MEDS: HYDROmorphone PF Inj 1 MG/ML Ampul IV.PUSH PRN ×2 (01:39→06:05)
[2018-08-18] MEDS: Clindamycin 600 mg/NS Premix 600 MG/50 ML PIGGYBACK IV.SIG SCH ×4 (02:09→19:45)
[2018-08-18] MEDS: Levothyroxine 150 MCG Tablet PO SCH (06:05)
[2018-08-18] MEDS: Multivitamin/Minerals Therapeutic Tablet PO SCH ×2 (09:52→20:27)
[2018-08-18] MEDS: ALPRAZolam 0.25 MG Tablet PO SCH (09:52)
[2018-08-18] MEDS: Senna/Docusate Sodium 8.6/50 MG Tablet PO SCH ×2 (09:53→20:28)
--- NOTE | 2018-08-18 10:57 | P.PN ---
Subjective Interval history: Patient feels very tired. She is in bed at this time says that she did not have any therapy. Not eating much with the nausea or vomiting. Denies fever or chills. His pain no shortness of breath. Physical Exam Vital signs: Vital Signs 08/17/18 14:03 08/17/18 16:52 08/17/18 19:30 Temperature 99.1 F 98.8 F Pulse Rate 73 86 Respiratory Rate 18 20 Blood Pressure 144/68 H 170/72 H Pulse Oximetry 99 94 L 08/17/18 20:55 08/17/18 21:00 08/17/18 21:12 Temperature 98.6 F Pulse Rate 98 H 89 93 H Respiratory Rate 24 14 25 H Blood Pressure 196/83 H 195/83 H 159/69 H Pulse Oximetry 97 99 98 08/17/18 21:15 08/17/18 21:29 08/17/18 21:30 Temperature 98.4 F Pulse Rate 93 H 74 88 Respiratory Rate 24 17 25 H Blood Pressure 172/71 H 158/70 H 157/70 H Pulse Oximetry 99 96 98 08/17/18 21:45 08/17/18 22:00 08/17/18 22:12 Temperature 98.4 F Pulse Rate 88 82 Respiratory Rate 21 18 18 Blood Pressure 154/70 H 150/69 H Pulse Oximetry 98 97 08/17/18 22:55 08/18/18 00:00 08/18/18 01:03 Temperature 97.4 F L Pulse Rate 80 Respiratory Rate 17 17 Blood Pressure 165/72 H Pulse Oximetry 97 97 08/18/18 02:09 08/18/18 04:00 Temperature 97.2 F L Pulse Rate 76 Respiratory Rate 18 17 Blood Pressure 154/70 H Pulse Oximetry 98 Intake & Output 08/17/18 08/18/18 08/18/18 18:59 06:59 18:59 Intake Total 1460 / 1460 1050 / 1050 Output Total 400 / 400 Balance 1060 / 1060 1050 / 1050 Weight 86.5 kg Intake: IV 150 / 150 1050 / 1050 LR 1000 mL Inj 1,000 ML @ 80 1000 / 1000 mls/hr IV.CONT .[id number] [facility] Rx# :[id number] Cleocin 600 mg/NS Premix 600 mg 50 / 50 50 / 50 In 50 ml @ 100 mls/hr IV.SIG Q6H [facility] Rx#:[id number] Vancomycin Inj 500 MG In NS Inj 100 / 100 100 ML @ 200 mls/hr IV.SIG ONCE ONE Rx#:[id number] Oral 510 / 510 Anesthesia Amount 800 / 800 Output: Urine 350 / 350 Estimated Blood Loss 30 / 30 Wound Drainage # 1 Left Knee Other: Weight On Admission 86.581 kg Narrative: GENERAL: Elderly female, well-nourished, well-developed patient, in no apparent distress. SKIN: Warm, dry, left knee lizzy wrap to left, bulb drain in place draining sanguinous fluid EYES: Pupils equal round and reactive, no scleral edema or drainage CARDIOVASCULAR: Regular rate and rhythm without murmurs, gallops, or rubs. RESPIRATORY: Clear to auscultation. Breath sounds equal bilaterally. No wheezes , rales, or rhonchi. GASTROINTESTINAL: Abdomen soft, non-tender, nondistended. Normal active bowel sounds MUSCULOSKELETAL: Extremities without clubbing, cyanosis. Mild edema to left knee , limited ROM. NEURO: Alert & Oriented x4 to person, place, time, situation. Results - Labs CBC & Chem 7: 08/17/18 05:50 08/17/18 05:50 Laboratory Results - last 24 hr 08/17/18 08/17/18 08/17/18 12:20 12:20 18:19 POC Glucose 144 H Synovial Color Red H Synovial Appearance Bloody H Synovial RBC [id number] H Synovial Nuc Cells 87600 H Synovial Neutrophils 90 H Synovial Lymphocytes 3 Synovial Monocytes 7 Synovial Crystals None Microbiology 08/17/18 20:30 Wound - Knee Fungal Smear - Final No fungal elements seen 08/17/18 20:30 Wound - Knee Fungal Smear - Final No fungal elements seen 08/17/18 20:30 Wound - Knee Gram Stain - Final 08/17/18 20:30 Wound - Knee Gram Stain - Final 08/17/18 12:20 Fluid - Synovial Fluid Gram Stain - Final - Imaging Impressions Aspiration 08/17/18 11:36 CONCLUSION: Uncomplicated ultrasound-guided left knee joint aspiration as above. Assessment and Plan - Plan 77-year-old female with history of arthritis, hyperlipidemia, Mnire's disease , hypothyroid, COPD, breast cancer and hypertension presented to the ED with complaints of left knee pain. Septic arthritis, wbc 15.2 Orthopedics was consulted, Dr. Suazo took patient to the OR for Left knee arthrotomy with washout for septic knee -Pain management with PO [place] and IV morphine -PT eval -Cultures pending -ID consulted -See clindamycin IV. Continue vancomycin IV HLD, chronic -Resume home medications -Cardiac diet Hypothyroid, chronic -Resume home medications HTN, chronic -Resume home medications -Monitor vitals DVT prophylaxis: SCDs DC when improves and cleared by ortho and ID might need SNF
--- NOTE | 2018-08-18 13:19 | P.CONID ---
History of Present Illness Service: ID Consult date: 08/18/18 Requesting Physician: Pablo Wray Reason for Consult: septic L knee Primary Care Provider: No Primary Care Physician Chief Complaint: Left knee pain History of Present Illness: 77 yo female with h/o obesity , diabetis presented with 2 days of L knee pain, swelling L knee with effusion aspirated: 25K WBC, Gstain+ for GPC Presented with no fever, but + leukocytosis of 15 K Sp Left knee arthrotomy with washout for septic knee on 08/17/[address] Wray She c/o nause, vomiting Review of Systems All other systems reviewed negative except as stated in HPI PMFSH - History History Provided By: Patient - Medical History Medical History: Medical History (Last Reviewed 08/18/18 @ 13:09 by Yandy Romero MD) Arthritis Asthma Breast cancer COPD (chronic obstructive pulmonary disease) Degenerative disc disease HTN (hypertension) Hypercholesteremia Hypothyroid Menieres disease - Surgical History Surgical History: Surgical History (Last Reviewed 08/18/18 @ 13:09 by Yandy Romero MD) H/O lumpectomy History of carpal tunnel surgery Hx of cholecystectomy - Family History Family History: Family History (Last Reviewed 08/18/18 @ 13:09 by Yandy Romero MD) Other No significant family history - Social History I have reviewed the patient's Social History: Yes - Tobacco History Second Hand Smoke Exposure: Yes Tobacco Use In Past 30 Days: No Smoking Status: Never smoker - Alcohol History How Often Do You Have a Drink Containing Alcohol: Never - Substance Use History Substance History: No History of Abuse - Travel History Recent Travel in the [place] Within the Last 8 Weeks: No Recent Travel Out of the Country Within the Last 8 Weeks: No - Immunization History Tetanus Immunization: Never Vaccinated Hx Influenza Vaccine This Season: Yes Medications and Allergies Active Medications: Active Medications Acetaminophen (Tylenol) 650 mg PO Q4H PRN PRN Reason: Temp > 100.4 Hydrocodone Bitart/Acetaminophen ([place] 5/325) 1 tab PO Q4H PRN PRN Reason: PAIN LESS THAN 5 ON SCALE Hydrocodone Bitart/Acetaminophen ([place] 5/325) 2 tab PO Q6H PRN PRN Reason: PAIN SCALE 5 TO 10 Last Admin: 08/18/18 00:33 Dose: 2 tab Al Hydrox/Mg Hydrox/Simethicone (Mag-Al Plus Susp Liq) 30 ml PO Q6H PRN PRN Reason: INDIGESTION Al Hydroxide/Mg Hydroxide (Milk Of Magnesia Liq) 30 ml PO BID PRN PRN Reason: Mild Constipation Alprazolam (Xanax) 0.25 mg PO DAILY [facility] Last Admin: 08/18/18 09:52 Dose: 0.25 mg Aspirin (Aspirin Chew) 81 mg PO BID [facility] Last Admin: 08/18/18 09:54 Dose: Not Given Atorvastatin Calcium (Lipitor) 10 mg PO DAILY [facility] Last Admin: 08/18/18 09:53 Dose: Not Given Benzocaine/Menthol (Chloraseptic Sore Throat Lozenge) 1 lozenge BUCCAL DAILY PRN PRN Reason: sore throat Bisacodyl (Dulcolax Supp) 10 mg RECTAL DAILY PRN PRN Reason: SEVERE CONSITIPATION Diphenhydramine HCl (Benadryl) 25 mg PO Q6H PRN PRN Reason: ITCHING Hydromorphone HCl (Dilaudid Pf Inj) 1 mg IV.PUSH Q3H PRN PRN Reason: BREAKTHROUGH PAIN Last Admin: 08/18/18 06:05 Dose: 1 mg Hydromorphone HCl (Dilaudid Pf Inj) 0.5 mg IV.PUSH Q4H PRN PRN Reason: BREAKTHROUGH PAIN Lactated Ringer's (Lr 1000 Ml Inj) 1,000 mls @ 80 mls/hr IV.CONT .[id number] [facility] Last Admin: 08/18/18 11:04 Dose: 80 mls/hr Pharmacy Profile Note (Vancomycin Consult Pharmacy) 0 mls @ 0 mls/hr OTHER UNSCH [facility] Clindamycin/Sodium Chloride (Cleocin 600 Mg/Ns Premix) 600 mg in 50 mls @ 100 mls/hr IV.SIG Q6H [facility] Stop: 08/18/18 20:29 Last Infusion: 08/18/18 09:54 Dose: Infused Vancomycin HCl 1,500 mg/ (Sodium Chloride) 515 mls @ 250 mls/hr IV.SIG Q24H [facility] Lactulose (Lactulose Liq) 30 ml PO DAILY PRN PRN Reason: SEVERE CONSITIPATION Levothyroxine Sodium (Synthroid) 150 mcg PO DAILY@0600 [facility] Last Admin: 08/18/18 06:05 Dose: 150 mcg Metoclopramide HCl (Reglan Inj) 5 mg IV.PUSH Q8H PRN; Protocol PRN Reason: intractable n/v Last Admin: 08/18/18 09:08 Dose: 5 mg Miscellaneous Information ([facility] Nursing Information) 1 each OTHER UNSCH PRN PRN Reason: SEE LABEL COMMENTS Stop: 08/18/18 20:55 Miscellaneous Information ([facility] Ordered Lab Info) 0 each OTHER ONCE ONE Stop: 08/20/18 21:46 Montelukast Sodium (Singulair) 10 mg PO HS [facility] Multivitamins/Minerals (Theragran-M) 1 tab PO BID [facility] Stop: 10/16/18 20:59 Last Admin: 08/18/18 09:52 Dose: Not Given Nebivolol (Bystolic) 5 mg PO DAILY [facility] Last Admin: 08/18/18 09:54 Dose: Not Given Ondansetron HCl (Zofran Inj) 4 mg IV.PUSH Q6H PRN PRN Reason: NAUSEA OR VOMITING Last Admin: 08/18/18 06:17 Dose: 4 mg Ondansetron HCl (Zofran Inj) 4 mg IV.PUSH Q6H PRN PRN Reason: NAUSEA OR VOMITING Senna/Docusate Sodium (Kanika-Colace) 1 tab PO BID [facility] Last Admin: 08/18/18 09:53 Dose: Not Given Sennosides (Senokot) 17.2 mg PO BID PRN PRN Reason: Moderate Constipation Sodium Chloride (Ns Flush) 2 ml IV.FLUSH BID [facility] Last Admin: 08/18/18 09:53 Dose: 2 ml Sodium Chloride (Ns Flush) 2 ml IV.FLUSH PRN PRN PRN Reason: FLUSH AFTER USING IV ACCESS Triamterene/HCTZ (Dyazide 37.5/25 Mg) 1 cap PO DAILY [facility] Last Admin: 08/18/18 09:53 Dose: Not Given Zolpidem Tartrate (Ambien) 5 mg PO HS PRN PRN Reason: INSOMNIA Allergies Allergy/AdvReac Type Severity Reaction Status Date / Time cefadroxil Allergy Severe HIVES Verified 08/31/17 09:27 morphine Allergy Severe VOMITING Verified 08/31/17 09:27 adhesive AdvReac Intermediate Verified 08/31/17 09:27 Home Medications Medication Instructions Recorded Confirmed Type albuterol sulfate [Proventil HFA] 2 puff INHALATION Q4-6H PRN 08/17/18 08/17/18 History albuterol sulfate [Ventolin HFA] 2 puff INHALATION Q4-6H PRN 08/17/18 08/17/18 History alprazolam 0.25 mg PO DAILY 08/17/18 08/17/18 History atorvastatin 10 mg PO DAILY 08/17/18 08/17/18 History atorvastatin [Lipitor] 10 mg PO DAILY 08/17/18 08/17/18 History levothyroxine [Synthroid] 150 mcg PO DAILY 08/17/18 08/17/18 History montelukast [Singulair] 10 mg PO QPM 08/17/18 08/17/18 History nebivolol [Bystolic] 5 mg PO DAILY 08/17/18 08/17/18 History triamterene-hydrochlorothiazid 1 cap PO DAILY 08/17/18 08/17/18 History zolpidem 10 mg PO DAILY 08/17/18 08/17/18 History Exam Vital signs: Vital Signs 08/17/18 14:03 08/17/18 16:52 08/17/18 19:30 Temperature 99.1 F 98.8 F Pulse Rate 73 86 Respiratory Rate 18 20 Blood Pressure 144/68 H 170/72 H Pulse Oximetry 99 94 L 08/17/18 20:55 08/17/18 21:00 08/17/18 21:12 Temperature 98.6 F Pulse Rate 98 H 89 93 H Respiratory Rate 24 14 25 H Blood Pressure 196/83 H 195/83 H 159/69 H Pulse Oximetry 97 99 98 08/17/18 21:15 08/17/18 21:29 08/17/18 21:30 Temperature 98.4 F Pulse Rate 93 H 74 88 Respiratory Rate 24 17 25 H Blood Pressure 172/71 H 158/70 H 157/70 H Pulse Oximetry 99 96 98 08/17/18 21:45 08/17/18 22:00 08/17/18 22:12 Temperature 98.4 F Pulse Rate 88 82 Respiratory Rate 21 18 18 Blood Pressure 154/70 H 150/69 H Pulse Oximetry 98 97 08/17/18 22:55 08/18/18 00:00 08/18/18 01:03 Temperature 97.4 F L Pulse Rate 80 Respiratory Rate 17 17 Blood Pressure 165/72 H Pulse Oximetry 97 97 08/18/18 02:09 08/18/18 04:00 Temperature 97.2 F L Pulse Rate 76 Respiratory Rate 18 17 Blood Pressure 154/70 H Pulse Oximetry 98 Intake & Output 08/17/18 08/18/18 08/18/18 18:59 06:59 18:59 Intake Total 1460 / 1460 1050 / 1050 Output Total 400 / 400 Balance 1060 / 1060 1050 / 1050 Weight 86.5 kg Intake: IV 150 / 150 1050 / 1050 LR 1000 mL Inj 1,000 ML @ 80 1000 / 1000 mls/hr IV.CONT .[id number] [facility] Rx# :[id number] Cleocin 600 mg/NS Premix 600 mg 50 / 50 50 / 50 In 50 ml @ 100 mls/hr IV.SIG Q6H [facility] Rx#:[id number] Vancomycin Inj 500 MG In NS Inj 100 / 100 100 ML @ 200 mls/hr IV.SIG ONCE ONE Rx#:[id number] Oral 510 / 510 Anesthesia Amount 800 / 800 Output: Urine 350 / 350 Estimated Blood Loss 30 / 30 Wound Drainage # 1 Left Knee Other: Weight On Admission 86.581 kg - Constitutional no acute distress, obese - Routine HEENT Exam Head: Present: normocephalic, atraumatic Eye: Present: EOMI, PERRL ENT: Present: mucous membranes moist, oropharynx clear - Routine Neck Exam Present: supple, full ROM. Absent: JVD - Routine Respiratory Exam Present: decreased breath sounds, CTA bilaterally - Routine Cardiovascular Exam Present: RRR, S1, S2. Absent: murmur, gallop, rubs - Routine Abdominal Exam Present: soft, normoactive bowel sounds, distended. Absent: tenderness - Routine Extremities Exam Present: edema (LLE). Absent: cyanosis, clubbing Comments: L knee dressing in place with drain inplace FABIO serosangious - Routine Skin Exam Present: intact, dry, warm. Absent: rash - Routine Neurological Exam Present: alert, oriented X3, CN II-XII intact. Absent: sensory deficit, motor deficit - Routine Psychiatric Exam Present: normal affect, cooperative Results - Labs CBC & Chem 7: 08/17/18 05:50 08/17/18 05:50 Labs: Laboratory Results - last 24 hr 08/17/18 08/17/18 08/17/18 12:20 12:20 18:19 POC Glucose 144 H Synovial Color Red H Synovial Appearance Bloody H Synovial RBC [id number] H Synovial Nuc Cells 05670 H Synovial Neutrophils 90 H Synovial Lymphocytes 3 Synovial Monocytes 7 Synovial Crystals None - Imaging Impressions Aspiration 08/17/18 11:36 CONCLUSION: Uncomplicated ultrasound-guided left knee joint aspiration as above. Assessment and Plan - Plan L septic knee, gram+, probably staph nausea, vomiting dc clindamycin cont vancomycin KUB (ileus) dw RN
--- NOTE | 2018-08-18 14:06 | XR ---
EXAM DATE: 08/18/2018 2:01 PM EST AGE/SEX: 77 years / Female INDICATIONS: Distention. CLINICAL DATA: This is the patient's initial encounter. Patient reports that signs and symptoms have been present for 2 days and indicates a pain score of 0/10. MEDICAL/SURGICAL HISTORY: None. None. COMPARISON: No prior exams available for comparison. FINDINGS: Nonspecific gas pattern is noted. There is air throughout the GI tract without evidence of pathologi c distention or mass effect. Postsurgical clips from cholecystectomy are noted. There are no pathologic calcifications. Osseous structures are intact. CONCLUSION: No evidence of significant ileus, free air or mass effect. Electronically signed by: Elie Quintana MD 08/18/2018 2:05 PM EST
--- NOTE | 2018-08-18 18:10 | P.PNOP ---
Subjective Interval history: The patient states that the knee does feel little bit better than it did prior to surgery. The patient has no new numbness or tingling. Physical Exam Vital signs: Vital Signs 08/17/18 19:30 08/17/18 20:55 08/17/18 21:00 Temperature 98.8 F 98.6 F Pulse Rate 86 98 H 89 Respiratory Rate 20 24 14 Blood Pressure 170/72 H 196/83 H 195/83 H Pulse Oximetry 94 L 97 99 08/17/18 21:12 08/17/18 21:15 08/17/18 21:29 Temperature 98.4 F Pulse Rate 93 H 93 H 74 Respiratory Rate 25 H 24 17 Blood Pressure 159/69 H 172/71 H 158/70 H Pulse Oximetry 98 99 96 08/17/18 21:30 08/17/18 21:45 08/17/18 22:00 Temperature 98.4 F Pulse Rate 88 88 82 Respiratory Rate 25 H 21 18 Blood Pressure 157/70 H 154/70 H 150/69 H Pulse Oximetry 98 98 97 08/17/18 22:12 08/17/18 22:55 08/18/18 00:00 Temperature 97.4 F L Pulse Rate 80 Respiratory Rate 18 17 Blood Pressure 165/72 H Pulse Oximetry 97 97 08/18/18 01:03 08/18/18 02:09 08/18/18 04:00 Temperature 97.2 F L Pulse Rate 76 Respiratory Rate 17 18 17 Blood Pressure 154/70 H Pulse Oximetry 98 08/18/18 12:00 Temperature 96.0 F L Pulse Rate 67 Respiratory Rate 19 Blood Pressure 153/70 H Pulse Oximetry 97 Intake & Output 08/17/18 08/18/18 08/18/18 18:59 06:59 18:59 Intake Total 1460 / 1460 1100 / 1100 Output Total 400 / 400 Balance 1060 / 1060 1100 / 1100 Weight 86.5 kg Intake: IV 150 / 150 1100 / 1100 LR 1000 mL Inj 1,000 ML @ 80 1000 / 1000 mls/hr IV.CONT .[id number] [facility] Rx# :[id number] Cleocin 600 mg/NS Premix 600 mg 50 / 50 100 / 100 In 50 ml @ 100 mls/hr IV.SIG Q6H [facility] Rx#:[id number] Vancomycin Inj 500 MG In NS Inj 100 / 100 100 ML @ 200 mls/hr IV.SIG ONCE ONE Rx#:[id number] Oral 510 / 510 Anesthesia Amount 800 / 800 Output: Urine 350 / 350 Estimated Blood Loss 30 / 30 Wound Drainage # 1 Left Knee Other: Weight On Admission 86.581 kg Narrative: The left knee is dressed. There is serosanguineous drainage currently in the FABIO drain. She can move the toes well actively. Note that there is no bloody drainage on the dressings. She has brisk capillary refill distally. Results - Labs CBC & Chem 7: 08/17/18 05:50 08/17/18 05:50 Laboratory Results - last 24 hr 08/17/18 18:19 POC Glucose 144 H Microbiology 08/17/18 12:20 Fluid - Synovial Fluid Gram Stain - Final 08/17/18 12:20 Fluid - Synovial Fluid Body Fluid Culture - Preliminary No growth in 24 hours 08/17/18 20:30 Wound - Knee Gram Stain - Final 08/17/18 20:30 Wound - Knee Wound Culture - Preliminary No growth in 24 hours 08/17/18 20:30 Wound - Knee Gram Stain - Final 08/17/18 20:30 Wound - Knee Wound Culture - Preliminary No growth in 24 hours 08/17/18 20:30 Wound - Knee Fungal Smear - Final No fungal elements seen 08/17/18 20:30 Wound - Knee Fungal Smear - Final No fungal elements seen - Imaging Impressions Abdomen X-Ray 08/18/18 13:20 CONCLUSION: No evidence of significant ileus, free air or mass effect. Assessment and Plan - Assessment and Plan POD #1 left knee arthrotomy with lavage, for gram-positive cocci infection. Continue to follow the cultures for definitive speciation and sensitivities. Infectious disease physician is monitoring and will manage the antibiotics. The patient will require intravenous antibiotics at home. Weight-bear as tolerated left lower extremity. Continue the drain until tomorrow. Dressing change on 08/19/2018. DVT prophylaxis with aspirin, prescription written. Follow-up with Dr. Wray in 1 week after discharge.
[2018-08-18] MEDS: Acetaminophen 325 MG Tablet PO PRN (19:44)
[2018-08-18] MEDS: Montelukast 10 MG Tablet PO SCH (20:28)
[2018-08-18] MEDS: Zolpidem Tartrate 5 MG Tablet PO PRN (22:59)
[2018-08-18] MEDS: Vancomycin Inj 1,500 MG in Sodium Chlor 0.9% Inj 500 ML IV.SIG SCH (23:00)
[2018-08-19 04:56] LABS: Baso % (Auto) 0.2 % (0.0-2.0); Eos % (Auto) 0.4 % (0.0-4.0); Hematocrit 32.1 % (35.0-46.0); Hemoglobin 11.1 gm/dL (11.6-15.3); Lymph % (Auto) 18.3 % (9.0-44.0); Mean Corpuscular HGB Conc 34.5 % (32.0-36.0); Mean Corpuscular Hemoglobin 29.4 pg (27.0-34.0); Mean Corpuscular Volume 85.3 fL (80.0-100.0); Mean Platelet Volume 9.7 fL (7.0-11.0); Mono # (Auto) 1.2 th/mm3 (0.0-0.9); Mono % (Auto) 10.6 % (0.0-8.0); Neut # (Auto) 7.8 th/mm3 (1.8-7.7); Neut % (Auto) 70.5 % (16.0-70.0); Platelet Count 226 th/mm3 (150-450); Red Blood Count 3.77 mil/mm3 (4.00-5.30); Red Cell Distribution Width 13.1 % (11.6-17.2); White Blood Count 11.1 th/mm3 (4.0-11.0)
[2018-08-19 05:15] LABS: Calcium 7.9 mg/dL (8.5-10.1); Carbon Dioxide 27.7 meq/L (21.0-32.0); Potassium 3.4 meq/L (3.5-5.1)
[2018-08-19] MEDS: Levothyroxine 150 MCG Tablet PO SCH (05:48)
--- NOTE | 2018-08-19 07:56 | P.PNOP ---
Subjective Interval history: No complaints. Patient appears comfortable Physical Exam Vital signs: Vital Signs 08/18/18 12:00 08/18/18 16:00 08/18/18 20:00 Temperature 96.0 F L 97.3 F L 97.7 F Pulse Rate 67 64 80 Respiratory Rate 19 16 18 Blood Pressure 153/70 H 128/61 133/61 Pulse Oximetry 97 98 98 08/18/18 20:14 08/19/18 00:00 Temperature 97.1 F L Pulse Rate 76 Respiratory Rate 18 17 Blood Pressure 128/62 Pulse Oximetry 98 Intake & Output 08/18/18 08/19/18 08/19/18 18:59 06:59 18:59 Intake Total 1600 / 1600 204 / 5 Output Total Balance 1580 / 1580 2029 / 2029 Weight 86.5 kg Intake: IV 1100 / 1100 1565 / 1565 LR 1000 mL Inj 1,000 ML @ 80 1000 / 1000 1000 / 1000 mls/hr IV.CONT .[id number] [facility] Rx# :[id number] Cleocin 600 mg/NS Premix 600 mg 100 / 100 50 / 50 In 50 ml @ 100 mls/hr IV.SIG Q6H [facility] Rx#:[id number] Vancomycin Inj 1,500 MG In NS 515 / 515 Inj 500 ML @ 250 mls/hr IV.SIG Q24H [facility] Rx#:[id number] Oral 500 / 500 480 / 480 Output: Wound Drainage # 1 Left Knee Other: # Voids 4 3 # Bowel Movements 0 Narrative: Dressing dry. Minimal drainage. Cultures negative so far, 24 hours read Results - Labs CBC & Chem 7: 08/19/18 04:01 08/19/18 04:01 Laboratory Results - last 24 hr 08/19/18 08/19/18 04:01 04:01 WBC 11.1 H RBC 3.77 L Hgb 11.1 L Hct 32.1 L MCV 85.3 MCH 29.4 MCHC 34.5 RDW 13.1 Plt Count 226 MPV 9.7 Neut % (Auto) 70.5 H Lymph % (Auto) 18.3 [place] % (Auto) 10.6 H Eos % (Auto) 0.4 Baso % (Auto) 0.2 Neut # (Auto) 7.8 H Lymph # (Auto) 2.0 [place] # (Auto) 1.2 H Eos # (Auto) 0.0 Baso # (Auto) 0.0 WBC Differential . Differential Comment Auto diff final Sodium 138 Potassium 3.4 L Chloride 103 Carbon Dioxide 27.7 Anion Gap 7 BUN 11 Creatinine 0.69 Estimated GFR 83 L Random Glucose 125 H Calcium 7.9 L D Microbiology 08/17/18 12:20 Fluid - Synovial Fluid Gram Stain - Final 08/17/18 12:20 Fluid - Synovial Fluid Body Fluid Culture - Preliminary No growth in 24 hours 08/17/18 20:30 Wound - Knee Gram Stain - Final 08/17/18 20:30 Wound - Knee Wound Culture - Preliminary No growth in 24 hours 08/17/18 20:30 Wound - Knee Gram Stain - Final 08/17/18 20:30 Wound - Knee Wound Culture - Preliminary No growth in 24 hours 08/17/18 20:30 Wound - Knee Fungal Smear - Final No fungal elements seen 08/17/18 20:30 Wound - Knee Fungal Smear - Final No fungal elements seen - Imaging Impressions Abdomen X-Ray 08/18/18 13:20 CONCLUSION: No evidence of significant ileus, free air or mass effect. Assessment and Plan - Assessment and Plan Pyogenic arthritis, left knee, spontaneous. SURGERY:POD #2 left knee arthrotomy with lavage, for gram-positive cocci infection. Continue to follow the cultures for definitive speciation and sensitivities, negative at 24 hours. It has not been read today Infectious disease physician is monitoring and will manage the antibiotics. The patient will require intravenous antibiotics at home. Weight-bear as tolerated left lower extremity. DC drain today Dressing change today DVT prophylaxis with aspirin, prescription written. Follow-up with Dr. Wray in 1 week after discharge.
[2018-08-19] MEDS: Senna/Docusate Sodium 8.6/50 MG Tablet PO SCH ×2 (09:07→20:45)
[2018-08-19] MEDS: Acetaminophen 325 MG Tablet PO PRN (09:07)
[2018-08-19] MEDS: ALPRAZolam 0.25 MG Tablet PO SCH (09:07)
[2018-08-19] MEDS: Multivitamin/Minerals Therapeutic Tablet PO SCH ×2 (09:07→20:45)
--- NOTE | 2018-08-19 10:15 | P.PN ---
Subjective Interval history: Less nausea or vomiting today. She is able to tolerate food. She is up in the chair. No fever or chills. No nausea or vomiting no diarrhea constipation. Physical Exam Vital signs: Vital Signs 08/18/18 12:00 08/18/18 16:00 08/18/18 20:00 Temperature 96.0 F L 97.3 F L 97.7 F Pulse Rate 67 64 80 Respiratory Rate 19 16 18 Blood Pressure 153/70 H 128/61 133/61 Pulse Oximetry 97 98 98 08/18/18 20:14 08/19/18 00:00 Temperature 97.1 F L Pulse Rate 76 Respiratory Rate 18 17 Blood Pressure 128/62 Pulse Oximetry 98 Intake & Output 08/18/18 08/19/18 08/19/18 18:59 06:59 18:59 Intake Total 1600 / 1600 2045 / 2045 Output Total Balance 1580 / 1580 2029 / 2029 Weight 86.5 kg Intake: IV 1100 / 1100 1565 / 1565 LR 1000 mL Inj 1,000 ML @ 80 1000 / 1000 1000 / 1000 mls/hr IV.CONT .[id number] [facility] Rx# :[id number] Cleocin 600 mg/NS Premix 600 mg 100 / 100 50 / 50 In 50 ml @ 100 mls/hr IV.SIG Q6H [facility] Rx#:[id number] Vancomycin Inj 1,500 MG In NS 515 / 515 Inj 500 ML @ 250 mls/hr IV.SIG Q24H [facility] Rx#:[id number] Oral 500 / 500 480 / 480 Output: Wound Drainage # 1 Left Knee Other: # Voids 4 3 # Bowel Movements 0 Narrative: GENERAL: Elderly female, well-nourished, well-developed patient, in no apparent distress. SKIN: Warm, dry, left knee lizzy wrap to left, bulb drain in place draining sanguinous fluid EYES: Pupils equal round and reactive, no scleral edema or drainage CARDIOVASCULAR: Regular rate and rhythm without murmurs, gallops, or rubs. RESPIRATORY: Clear to auscultation. Breath sounds equal bilaterally. No wheezes , rales, or rhonchi. GASTROINTESTINAL: Abdomen soft, non-tender, nondistended. Normal active bowel sounds MUSCULOSKELETAL: Extremities without clubbing, cyanosis. Mild edema to left knee , limited ROM. NEURO: Alert & Oriented x4 to person, place, time, situation. Results - Labs CBC & Chem 7: 08/19/18 04:01 08/19/18 04:01 Laboratory Results - last 24 hr 08/19/18 08/19/18 04:01 04:01 WBC 11.1 H RBC 3.77 L Hgb 11.1 L Hct 32.1 L MCV 85.3 MCH 29.4 MCHC 34.5 RDW 13.1 Plt Count 226 MPV 9.7 Neut % (Auto) 70.5 H Lymph % (Auto) 18.3 [place] % (Auto) 10.6 H Eos % (Auto) 0.4 Baso % (Auto) 0.2 Neut # (Auto) 7.8 H Lymph # (Auto) 2.0 [place] # (Auto) 1.2 H Eos # (Auto) 0.0 Baso # (Auto) 0.0 WBC Differential . Differential Comment Auto diff final Sodium 138 Potassium 3.4 L Chloride 103 Carbon Dioxide 27.7 Anion Gap 7 BUN 11 Creatinine 0.69 Estimated GFR 83 L Random Glucose 125 H Calcium 7.9 L D Microbiology 08/17/18 12:20 Fluid - Synovial Fluid Gram Stain - Final 08/17/18 12:20 Fluid - Synovial Fluid Body Fluid Culture - Preliminary No growth in 24 hours 08/17/18 20:30 Wound - Knee Gram Stain - Final 08/17/18 20:30 Wound - Knee Wound Culture - Preliminary No growth in 24 hours 08/17/18 20:30 Wound - Knee Gram Stain - Final 08/17/18 20:30 Wound - Knee Wound Culture - Preliminary No growth in 24 hours 08/17/18 20:30 Wound - Knee Fungal Smear - Final No fungal elements seen 08/17/18 20:30 Wound - Knee Fungal Smear - Final No fungal elements seen - Imaging Impressions Abdomen X-Ray 08/18/18 13:20 CONCLUSION: No evidence of significant ileus, free air or mass effect. Assessment and Plan - Plan 77-year-old female with history of arthritis, hyperlipidemia, Mnire's disease , hypothyroid, COPD, breast cancer and hypertension presented to the ED with complaints of left knee pain. Septic arthritis, wbc 15.2 Orthopedics was consulted, Dr. Suazo took patient to the OR for Left knee arthrotomy with washout for septic knee -Pain management with PO [place] and IV morphine -PT eval -Cultures pending -ID consulted -See clindamycin IV. Continue vancomycin IV Consult PT and OT. HLD, chronic -Resume home medications -Cardiac diet Hypothyroid, chronic -Resume home medications HTN, chronic -Resume home medications -Monitor vitals Nausea and vomiting, resolving. Antiemetics as needed DVT prophylaxis: SCDs DC when improves and cleared by ortho and ID might need SNF
[2018-08-19] MEDS: Zolpidem Tartrate 5 MG Tablet PO PRN (20:45)
[2018-08-19] MEDS: Montelukast 10 MG Tablet PO SCH (20:47)
[2018-08-20] MEDS: Vancomycin Inj 1,500 MG in Sodium Chlor 0.9% Inj 500 ML IV.SIG SCH ×2 (02:17→21:19)
[2018-08-20] MEDS: Levothyroxine 150 MCG Tablet PO SCH (05:53)
--- NOTE | 2018-08-20 07:52 | P.PNOP ---
Subjective Interval history: No complaints. Cultures negative, so far Physical Exam Vital signs: Vital Signs 08/19/18 08:00 08/19/18 12:00 08/19/18 16:00 Temperature 97.9 F 97.6 F 97.7 F Pulse Rate 75 68 71 Respiratory Rate 15 14 15 Blood Pressure 158/70 H 159/72 H 124/58 L Pulse Oximetry 94 L 98 95 08/19/18 20:00 08/20/18 00:00 08/20/18 04:37 Temperature 98.2 F 98.6 F Pulse Rate 79 72 Respiratory Rate 18 18 18 Blood Pressure 129/60 164/70 H Pulse Oximetry 95 94 L Intake & Output 08/19/18 08/20/18 08/20/18 18:59 06:59 18:59 Intake Total 1000 / 1000 18745 Output Total Balance 980 / 980 1874 / 1874 Weight 86.36 kg Intake: IV 1000 / 1000 1515 / 1515 LR 1000 mL Inj 1,000 ML @ 80 1000 / 1000 1000 / 1000 mls/hr IV.CONT .[id number] [facility] Rx# :[id number] Vancomycin Inj 1,500 MG In NS 515 / 515 Inj 500 ML @ 250 mls/hr IV.SIG Q24H [facility] Rx#:[id number] Oral 360 / 360 Output: Wound Drainage # 1 Left Knee Other: # Voids 3 Date of Last Bowel Movement 08/16/18 Narrative: No drainage. Drain out. Mild swelling Results - Labs CBC & Chem 7: 08/19/18 04:01 08/19/18 04:01 Microbiology 08/17/18 20:30 Wound - Knee Acid Fast Bacilli Smear - Final No acid fast bacilli seen 08/17/18 20:30 Wound - Knee Acid Fast Bacilli Smear - Final No acid fast bacilli seen 08/17/18 20:30 Wound - Knee Gram Stain - Final 08/17/18 20:30 Wound - Knee Wound Culture - Preliminary No growth in 48 hours 08/17/18 20:30 Wound - Knee Gram Stain - Final 08/17/18 20:30 Wound - Knee Wound Culture - Preliminary No growth in 48 hours 08/17/18 12:20 Fluid - Synovial Fluid Gram Stain - Final 08/17/18 12:20 Fluid - Synovial Fluid Body Fluid Culture - Preliminary No growth in 48 hours Assessment and Plan - Assessment and Plan Pyogenic arthritis, left knee, spontaneous. SURGERY:POD #3 left knee arthrotomy with lavage, for gram-positive cocci infection. Continue to follow the cultures for definitive speciation and sensitivities, negative at 48 hours. It has not been read today Infectious disease physician is monitoring and will manage the antibiotics. The patient will likely require intravenous antibiotics at home. Weight-bear as tolerated left lower extremity. Dressing change today DVT prophylaxis with aspirin, prescription written. Follow-up with Dr. Wray in 1 week after discharge.
[2018-08-20] MEDS: Multivitamin/Minerals Therapeutic Tablet PO SCH ×2 (10:06→21:12)
[2018-08-20] MEDS: ALPRAZolam 0.25 MG Tablet PO SCH (10:07)
[2018-08-20] MEDS: Senna/Docusate Sodium 8.6/50 MG Tablet PO SCH ×2 (10:08→21:12)
--- NOTE | 2018-08-20 16:10 | P.PN ---
Subjective Interval history: Hemovac removed, says she has less pain in her knee. Is able to ambulate. No fever or chills. No nausea or vomiting. Able to eat. She will prefer to go home and not to [facility]. Physical Exam Vital signs: Vital Signs 08/19/18 20:00 08/20/18 00:00 08/20/18 04:37 Temperature 98.2 F 98.6 F Pulse Rate 79 72 Respiratory Rate 18 18 18 Blood Pressure 129/60 164/70 H Pulse Oximetry 95 94 L 08/20/18 08:00 08/20/18 12:00 Temperature 97.7 F 97.7 F Pulse Rate 82 75 Respiratory Rate 18 Blood Pressure 144/63 H 164/73 H Pulse Oximetry 96 99 Intake & Output 08/19/18 08/20/18 08/20/18 18:59 06:59 18:59 Intake Total 1000 / 1000 1875 / 1875 Output Total / 20 Balance 980 / 980 1875 / 1875 Weight 86.36 kg Intake: IV 1000 / 1000 1515 / 1515 LR 1000 mL Inj 1,000 ML @ 80 1000 / 1000 1000 / 1000 mls/hr IV.CONT .[id number] [facility] Rx# :[id number] Vancomycin Inj 1,500 MG In NS 515 / 515 Inj 500 ML @ 250 mls/hr IV.SIG Q24H [facility] Rx#:[id number] Oral 360 / 360 Output: Wound Drainage # 1 Left Knee Other: # Voids 3 Date of Last Bowel Movement 08/16/18 Narrative: GENERAL: Elderly female, well-nourished, well-developed patient, in no apparent distress. SKIN: Warm, dry, left knee lizzy wrap to left, bulb drain in place draining sanguinous fluid EYES: Pupils equal round and reactive, no scleral edema or drainage CARDIOVASCULAR: Regular rate and rhythm without murmurs, gallops, or rubs. RESPIRATORY: Clear to auscultation. Breath sounds equal bilaterally. No wheezes , rales, or rhonchi. GASTROINTESTINAL: Abdomen soft, non-tender, nondistended. Normal active bowel sounds MUSCULOSKELETAL: Extremities without clubbing, cyanosis. Mild edema to left knee , limited ROM. Dressing c/d/i. NEURO: Alert & Oriented x4 to person, place, time, situation. Results - Labs CBC & Chem 7: 11/22/18 04:01 08/19/18 04:01 Microbiology 08/17/18 20:30 Wound - Knee Gram Stain - Final 08/17/18 20:30 Wound - Knee Wound Culture - Final No growth in 72 hours (aerobically and anaerobically ) 08/17/18 20:30 Wound - Knee Gram Stain - Final 08/17/18 20:30 Wound - Knee Wound Culture - Final No growth in 72 hours (aerobically and anaerobically ) 08/17/18 12:20 Fluid - Synovial Fluid Gram Stain - Final 08/17/18 12:20 Fluid - Synovial Fluid Body Fluid Culture - Final No growth in 72 hours (aerobically and anaerobically ) 08/17/18 20:30 Wound - Knee Acid Fast Bacilli Smear - Final No acid fast bacilli seen 08/17/18 20:30 Wound - Knee Acid Fast Bacilli Smear - Final No acid fast bacilli seen Assessment and Plan - Plan 77-year-old female with history of arthritis, hyperlipidemia, Mnire's disease , hypothyroid, COPD, breast cancer and hypertension presented to the ED with complaints of left knee pain. Septic arthritis, WBC 15.2 Orthopedics was consulted, Dr. Suazo took patient to the OR for Left knee arthrotomy with washout for septic knee -Pain management with PO [place] and IV morphine -PT eval -Cultures pending -ID consulted -DCdclindamycin IV. Continue vancomycin IV Consult PT and OT. HLD, chronic -Resume home medications -Cardiac diet Hypothyroid, chronic -Resume home medications HTN, chronic -Resume home medications -Monitor vitals Nausea and vomiting, resolving. Antiemetics as needed DVT prophylaxis: SCDs DC when improves and cleared by ortho and ID might need SNF, patient want home with home health at [place]
[2018-08-20] MEDS: Montelukast 10 MG Tablet PO SCH (21:08)
[2018-08-20] MEDS: Zolpidem Tartrate 5 MG Tablet PO PRN (21:18)
[2018-08-20] MEDS ORDERED: Pharmacy Ordered Lab Info OTHER ONE (21:45)
[2018-08-21] MEDS: Levothyroxine 150 MCG Tablet PO SCH (05:37)
[2018-08-21] MEDS: Senna/Docusate Sodium 8.6/50 MG Tablet PO SCH ×2 (08:51→20:28)
[2018-08-21] MEDS: Multivitamin/Minerals Therapeutic Tablet PO SCH ×2 (08:52→20:28)
[2018-08-21] MEDS: ALPRAZolam 0.25 MG Tablet PO SCH (08:52)
--- NOTE | 2018-08-21 09:24 | P.PNOP ---
Subjective Interval history: s/p I&D left knee doing well. pain controlled. no new complaints Physical Exam Vital signs: Vital Signs 08/20/18 12:00 08/20/18 16:00 08/20/18 20:00 Temperature 97.7 F 98.1 F 98.9 F Pulse Rate 75 68 74 Respiratory Rate 18 18 16 Blood Pressure 164/73 H 144/64 H 159/70 H Pulse Oximetry 99 98 97 08/20/18 20:55 08/21/18 00:00 08/21/18 08:00 Temperature 98.2 F 97.4 F L Pulse Rate 88 68 Respiratory Rate 17 16 17 Blood Pressure 139/66 166/74 H Pulse Oximetry 93 L 96 Intake & Output 08/20/18 08/21/18 08/21/18 18:59 06:59 18:59 Intake Total 1710 / 1710 515 / 515 Balance 1710 / 1710 515 / 515 Weight 88 kg Intake: IV 750 / 750 515 / 515 LR 1000 mL Inj 1,000 ML @ 80 750 / 750 0 / 0 mls/hr IV.CONT .[id number] [facility] Rx# :[id number] Vancomycin Inj 1,500 MG In NS 515 / 515 Inj 500 ML @ 250 mls/hr IV.SIG Q24H [facility] Rx#:[id number] Oral 960 / 960 Other: # Voids 3 4 Narrative: LLE: dressings clean and dry. intact. NVI Results - Labs CBC & Chem 7: 08/19/18 04:01 08/19/18 04:01 Laboratory Results - last 24 hr 08/17/18 08/17/18 12:20 12:20 Synovial Glucose 92 Synovial Total Protein 3.8 H Microbiology 08/17/18 20:30 Wound - Knee Gram Stain - Final 08/17/18 20:30 Wound - Knee Wound Culture - Final No growth in 72 hours (aerobically and anaerobically ) 08/17/18 20:30 Wound - Knee Gram Stain - Final 08/17/18 20:30 Wound - Knee Wound Culture - Final No growth in 72 hours (aerobically and anaerobically ) 08/17/18 12:20 Fluid - Synovial Fluid Gram Stain - Final 08/17/18 12:20 Fluid - Synovial Fluid Body Fluid Culture - Final No growth in 72 hours (aerobically and anaerobically ) Assessment and Plan - Assessment and Plan Pyogenic arthritis, left knee, spontaneous. SURGERY:POD #4 left knee arthrotomy with lavage, for gram-positive cocci infection. Continue to follow the cultures for definitive speciation and sensitivities, negative at 72 hours Infectious disease physician is monitoring and will manage the antibiotics. The patient will likely require intravenous antibiotics at home. Weight-bear as tolerated left lower extremity. Dressing change today DVT prophylaxis with aspirin, prescription written. ortho cleared for DC Follow-up with Dr. Wray in 1 week after discharge.
--- NOTE | 2018-08-21 09:33 | P.PN ---
Subjective Interval history: Able to ambulate in the hallways today. Feels much better. Pain at the surgical site is better controlled. Is compliant with recommendations for physical therapy. Patient feels improving and wants to go home. Discussed with infectious disease Dr. Jane patient will need IV antibiotics at discharge vancomycin. Patient says her daughter is a nurse and also can help administer antibiotics. Patient denies having any fever or chills. No nausea vomiting no diarrhea. Has constipation. Physical Exam Vital signs: Vital Signs 08/20/18 12:00 08/20/18 16:00 08/20/18 20:00 Temperature 97.7 F 98.1 F 98.9 F Pulse Rate 75 68 74 Respiratory Rate 18 18 16 Blood Pressure 164/73 H 144/64 H 159/70 H Pulse Oximetry 99 98 97 08/20/18 20:55 08/21/18 00:00 08/21/18 08:00 Temperature 98.2 F 97.4 F L Pulse Rate 88 68 Respiratory Rate 17 16 17 Blood Pressure 139/66 166/74 H Pulse Oximetry 93 L 96 Intake & Output 08/20/18 08/21/18 08/21/18 18:59 06:59 18:59 Intake Total 1710 / 1710 515 / 515 Balance 1710 / 1710 515 / 515 Weight 88 kg Intake: IV 750 / 750 515 / 515 LR 1000 mL Inj 1,000 ML @ 80 750 / 750 0 / 0 mls/hr IV.CONT .[id number] [facility] Rx# :[id number] Vancomycin Inj 1,500 MG In NS 515 / 515 Inj 500 ML @ 250 mls/hr IV.SIG Q24H [facility] Rx#:[id number] Oral 960 / 960 Other: # Voids 3 4 Narrative: GENERAL: Elderly female, well-nourished, well-developed patient, in no apparent distress. SKIN: Warm, dry, left knee lizzy wrap to left, bulb drain in place draining sanguinous fluid EYES: Pupils equal round and reactive, no scleral edema or drainage CARDIOVASCULAR: Regular rate and rhythm without murmurs, gallops, or rubs. RESPIRATORY: Clear to auscultation. Breath sounds equal bilaterally. No wheezes , rales, or rhonchi. GASTROINTESTINAL: Abdomen soft, non-tender, nondistended. Normal active bowel sounds MUSCULOSKELETAL: Extremities without clubbing, cyanosis. Mild edema to left knee , limited ROM. Dressing c/d/i. NEURO: Alert & Oriented x4 to person, place, time, situation. Results - Labs CBC & Chem 7: 08/19/18 04:01 08/19/18 04:01 Laboratory Results - last 24 hr 08/17/18 08/17/18 12:20 12:20 Synovial Glucose 92 Synovial Total Protein 3.8 H Microbiology 08/17/18 20:30 Wound - Knee Gram Stain - Final 08/17/18 20:30 Wound - Knee Wound Culture - Final No growth in 72 hours (aerobically and anaerobically ) 08/17/18 20:30 Wound - Knee Gram Stain - Final 08/17/18 20:30 Wound - Knee Wound Culture - Final No growth in 72 hours (aerobically and anaerobically ) 08/17/18 12:20 Fluid - Synovial Fluid Gram Stain - Final 08/17/18 12:20 Fluid - Synovial Fluid Body Fluid Culture - Final No growth in 72 hours (aerobically and anaerobically ) Assessment and Plan - Plan 77-year-old female with history of arthritis, hyperlipidemia, Mnire's disease , hypothyroid, COPD, breast cancer and hypertension presented to the ED with complaints of left knee pain. Septic arthritis, WBC 15.2 Orthopedics was consulted, Dr. Suazo took patient to the OR for Left knee arthrotomy with washout for septic knee -Pain management with PO [place] and IV morphine -PT eval -Cultures pending -ID consulted -DCd clindamycin IV. Continue vancomycin IV Consult PT and OT. HLD, chronic -Resume home medications -Cardiac diet Hypothyroid, chronic -Resume home medications HTN, chronic -Resume home medications -Monitor vitals Nausea and vomiting, resolving. Antiemetics as needed DVT prophylaxis: SCDs DC when improves and cleared by ID. Ortho cleared patient for DC. Plan to discharge possible tomorrow patient needs IV antibiotics vancomycin infusion orders done per infectious disease. Will need to check the vancomycin level tomorrow. Case management is also following for discharge plan.
--- NOTE | 2018-08-21 13:13 | P.PNID ---
Subjective Remarks: ID COVERAGE. Coverage for Dr. Romero. Asked to make recommendations on this patient. Wound culture from left knee aspirate has no growth. Patient continues to have some pain in the knee. No fever. 77 yo female with h/o obesity , diabetis presented with 2 days of L knee pain, swelling L knee with effusion aspirated: 25K WBC, Gstain+ for GPC Presented with no fever, but + leukocytosis of 15 K Sp Left knee arthrotomy with washout for septic knee on 08/17/[address] Wray Past Medical History: Medical History (Last Reviewed 08/18/18 @ 13:09 by Yandy Romero MD) Arthritis Asthma Breast cancer COPD (chronic obstructive pulmonary disease) Degenerative disc disease HTN (hypertension) Hypercholesteremia Hypothyroid Menieres disease Allergies/Adverse Reactions: Allergies cefadroxil Allergy (Severe, Verified 08/31/17 09:27) HIVES morphine Allergy (Severe, Verified 08/31/17 09:27) VOMITING adhesive Adverse Reaction (Intermediate, Verified 08/31/17 09:27) PEELED OFF SKIN Objective Vital Signs 08/20/18 16:00 08/20/18 20:00 08/20/18 20:55 Temperature 98.1 F 98.9 F Pulse Rate 68 74 Respiratory Rate 18 16 17 Blood Pressure 144/64 H 159/70 H Pulse Oximetry 98 97 08/21/18 00:00 08/21/18 08:00 08/21/18 12:00 Temperature 98.2 F 97.4 F L 98.1 F Pulse Rate 88 68 64 Respiratory Rate 16 17 17 Blood Pressure 139/66 166/74 H 134/55 L Pulse Oximetry 93 L 96 93 L Intake & Output 08/20/18 08/21/18 08/21/18 18:59 06:59 18:59 Intake Total 1710 / 1710 515 / 515 Balance 1710 / 1710 515 / 515 Weight 88 kg Intake: IV 750 / 750 515 / 515 LR 1000 mL Inj 1,000 ML @ 80 750 / 750 0 / 0 mls/hr IV.CONT .[id number] SUSANNAH Rx# :[id number] Vancomycin Inj 1,500 MG In NS 515 / 515 Inj 500 ML @ 250 mls/hr IV.SIG Q24H SUSANNAH Rx#:[id number] Oral 960 / 960 Other: # Voids 3 4 08/17/18 20:30 Wound - Knee Gram Stain - Final 08/17/18 20:30 Wound - Knee Wound Culture - Final No growth in 72 hours (aerobically and anaerobically ) 08/17/18 20:30 Wound - Knee Gram Stain - Final 08/17/18 20:30 Wound - Knee Wound Culture - Final No growth in 72 hours (aerobically and anaerobically ) 08/17/18 12:20 Fluid - Synovial Fluid Gram Stain - Final 08/17/18 12:20 Fluid - Synovial Fluid Body Fluid Culture - Final No growth in 72 hours (aerobically and anaerobically ) 08/17/18 20:30 Wound - Knee Acid Fast Bacilli Smear - Final No acid fast bacilli seen 08/17/18 20:30 Wound - Knee Mycobacterial Culture - Pending 08/17/18 20:30 Wound - Knee Acid Fast Bacilli Smear - Final No acid fast bacilli seen 08/17/18 20:30 Wound - Knee Mycobacterial Culture - Pending 08/17/18 20:30 Wound - Knee Fungal Smear - Final No fungal elements seen 08/17/18 20:30 Wound - Knee Fungal Culture - Pending 08/17/18 20:30 Wound - Knee Fungal Smear - Final No fungal elements seen 08/17/18 20:30 Wound - Knee Fungal Culture - Pending Imaging: ITS Impressions Knee X-Ray 08/17/18 05:49 CONCLUSION: 1. Osteoarthritic findings of the knee with patellofemoral compartment predominance. 2. Large joint effusion with possible intra-articular osteochondral bodies. Venous Doppler Study 08/17/18 05:49 CONCLUSION: 1. The study is negative for lower extremity deep venous thrombosis. Knee CT 08/17/18 07:39 CONCLUSION: 1. Advanced tricompartmental osteoarthritis. 2. Moderate joint effusion. 3. Faint calcifications could relate to free bodies within the joint. I see no ostial defect but CT is very limited in evaluating for cartilaginous defects. MRI is more sensitive and specific for this evaluation. Aspiration 08/17/18 11:36 CONCLUSION: Uncomplicated ultrasound-guided left knee joint aspiration as above. Abdomen X-Ray 08/18/18 13:20 CONCLUSION: No evidence of significant ileus, free air or mass effect. Physical Exam: GENERAL: Alert and oriented, no acute distress. HEENT: Pupils reactive to light. Extraocular movements intact. No icterus. NECK: Supple without adenopathy. No swelling. LUNGS: Clear to auscultation. HEART: Regular S1 and S2 without murmurs. ABDOMEN: Soft, nontender. EXTREMITIES: Swelling at the left knee. SKIN: No rash. NEUROLOGIC: Nonfocal. PSYCH: Calm and cooperative. Assessment and Plan - Plan L septic knee, gram+, probably staph. Cultures were negative. However marked white count elevation in the fluid aspirated from the left knee. Recommendation: Continue to treat vancomycin IV outpatient for 2 weeks. PICC line insertion ordered. Case management to make arrangements for outpatient antibiotics. Vancomycin labs to be sent to Dr. Romero.
--- NOTE | 2018-08-21 13:16 | P.DCO ---
Post Hospital Infusion Therapy - Infusion Therapy Location of Infusion Therapy: Home Health Care IV Infusion Order - Patient Information Patient Weight: 88 kg - Administer Medication Vancomycin Stop Treatment: 09/03/18 - Additional Information Venous Access: PICC Line Additional Instructions: [x] Peripheral flush and dressing changes per protocol [x] Implanted port and central mason liner: * Implanted port: 10 ml Normal Saline followed by 5 ml Heparin 100 units/ml Heparin flush after each use and monthly to maintain. [] May leave port accessed during therapy. [] May leave peripheral site accessed for duration of therapy. [x] If patient has SOB or respiratory distress, check oxygen saturation. If less than 90% or clinical signs of respiratory distress, administer oxygen at 2 L/min. via nasal cannula and notify physician. [x] Anaphylaxis/Reaction orders: * Stop infusion. * Keep IV line open with saline flush. * Notify physician. * Monitor vital signs every 15 minutes until symptoms resolve. * Check Oxygen saturation; Oxygen at 2 L/min. via nasal cannula if less than 90% or clinical signs of respiratory distress. * Administer diphenhydramine (Benadryl) 25 mg IV STAT, (unless patient has received as pre-med). May repeat once, if necessary. * Solu-Cortef 250 mg IVP over 30-60 seconds, use 100 mg vials for each dissolution. * Epinephrine (1mg/1 ml) 0.3 mg subcutaneously or IVP now with any signs of respiratory distress. * Check with physician for new additional pre-med orders if patient is re- challenged or re-treated. [x] May remove PICC line when treatment complete, after confirming with Physician. [x] If the patient is admitted to the hospital, the ED, or transferred via [facility] , complete transfer form including medication reconciliation order sheet. Weekly Labs: BMP, CBC w/diff - Case Management Consult Case Management Consult-IVF: Yes (Send lab results to Dr. Feliciano Romero.) - Patient Information Allergies cefadroxil Allergy (Severe, Verified 08/31/17 09:27) HIVES morphine Allergy (Severe, Verified 08/31/17 09:27) VOMITING adhesive Adverse Reaction (Intermediate, Verified 08/31/17 09:27) PEELED OFF SKIN
[2018-08-21] MEDS ORDERED: Heparin Central Flush 100 UNIT/ML 5 ML Vial IV.FLUSH PRN (15:56)
[2018-08-21] MEDS: Montelukast 10 MG Tablet PO SCH (20:28)
[2018-08-21] MEDS ORDERED: Pharmacy Ordered Lab Info OTHER ONE (21:45)
[2018-08-21] MEDS: Zolpidem Tartrate 5 MG Tablet PO PRN (21:50)
[2018-08-21] MEDS: Vancomycin Inj 1,500 MG in Sodium Chlor 0.9% Inj 500 ML IV.SIG SCH (21:50)
[2018-08-22] MEDS: Levothyroxine 150 MCG Tablet PO SCH (05:55)
[2018-08-22] MEDS: Senna/Docusate Sodium 8.6/50 MG Tablet PO SCH ×2 (09:52→20:05)
[2018-08-22] MEDS: ALPRAZolam 0.25 MG Tablet PO SCH (09:52)
[2018-08-22] MEDS: Multivitamin/Minerals Therapeutic Tablet PO SCH ×2 (09:52→20:04)
--- NOTE | 2018-08-22 13:18 | P.DCO ---
- Physical Therapy Order: Evaluate and treat - Home Health Nursing Order: Medical education, Signs/symptoms of disease process, Medication education-adverse effect, Nursing assessment with vital signs, IV medication administration - Case Management Consult Case Management Consult-Home Health: Yes - Certification I have seen patient Dione Cruz on 08/22/18. My clinical findings support the need for the requested home health care services because: Limited mobility due to disease progression, Patient has SOB, Deconditioned with increased weakness I certify that my clinical findings support that this patient is homebound because: Post-op weakness
--- NOTE | 2018-08-22 13:19 | P.DS ---
Date of admission: 08/17/18 20:00 Primary care physician: No Primary Care Physician Brief History from admission: 77-year-old female with history of arthritis, hyperlipidemia, Mnire's disease , hypothyroid, COPD, breast cancer and hypertension presented to the ED with complaints of left knee pain. Patient states behaving began yesterday and she felt a clicking sensation in the knee, with associated difficulty with ambulation. On arrival to the ED patient was found to have a left knee joint effusion and loss of range of motion. Patient was taken to the OR by Dr. Suazo who did an Left knee arthrotomy with washout for septic knee. Patient was seen status post OR. She states the pain was a 10/10 prior to coming in and now is down to a 7/10, not much relief with the norco. She denies any associated symptoms, no chest pain, sob, fever or chills. DS: Diagnosis - Discharge Diagnosis (1) Septic arthritis Status: Acute DS: Medications - Discharge Medications Prescriptions: aspirin [Adult Aspirin Regimen] 81 mg PO BID 30 Days #60 tab hydrocodone-acetaminophen [[place]] 1 - 2 tab PO Q4-6H #50 tab DS: Summary Hospital Course: 77-year-old female with history of arthritis, hyperlipidemia, Mnire's disease , hypothyroid, COPD, breast cancer and hypertension presented to the ED with complaints of left knee pain. Septic arthritis, WBC 15.2 on admission Orthopedics was consulted, Dr. Suazo took patient to the OR for Left knee arthrotomy with washout for septic knee -Pain management with PO [place] and IV morphine -PT eval -Cultures pending -ID consulted -DCd clindamycin IV. Received vancomycin IV Patient improved. Cultures initially reported positive however final cultures reported negative, patient has hemarthrosis and no signs of infection. ID recommends discontinuing abx. no need for antibiotic at DC per ID recommendations. Patient is DC home with home health in stable condition to follow up as OP with PCP and consultants. Consult PT and OT. HLD, chronic -Resume home medications -Cardiac diet Hypothyroid, chronic -Resume home medications HTN, chronic -Resume home medications -Monitor vitals Nausea and vomiting, resolved. Antiemetics as needed Constipation resolved. Continue bowel regiment as needed. DVT prophylaxis: SCDs, chemical prophylaxis per surgeon Patient improved. Cultures initially reported positive however final cultures reported negative, patient has hemarthrosis and no signs of infection. ID recommends discontinuing abx. no need for antibiotic at DC per ID recommendations. Patient is DC home with home health in stable condition to follow up as OP with PCP and consultants. - Time Spent with Patient Total time spent providing and/or coordinating discharge services: Greater than 30 minutes - Quality: VTE Deep Vein Thrombosis/Pulmonary Embolism Present on Admission: No Exam Vital signs: Vital Signs 08/21/18 16:00 08/21/18 20:00 08/22/18 00:00 Temperature 97.9 F 98.6 F 97.7 F Pulse Rate 73 64 65 Respiratory Rate 17 17 20 Blood Pressure 175/73 H 163/72 H 155/65 H Pulse Oximetry 96 97 97 08/22/18 08:00 08/22/18 12:00 Temperature 97.7 F 98.5 F Pulse Rate 74 77 Respiratory Rate 17 17 Blood Pressure 152/67 H 130/61 Pulse Oximetry 95 97 Intake & Output 08/21/18 08/22/18 08/22/18 18:59 06:59 18:59 Intake Total 1300 / 1300 1295 / 1295 Balance 1300 / 1300 1295 / 1295 Weight 88 kg 88 kg Intake: IV 515 / 515 Vancomycin Inj 1,500 MG In NS 515 / 515 Inj 500 ML @ 250 mls/hr IV.SIG Q24H SUSANNAH Rx#:[id number] Oral 1300 / 1300 780 / 780 Other: # Voids 7 2 Date of Last Bowel Movement 08/16/18 Narrative: GENERAL: Elderly female, well-nourished, well-developed patient, in no apparent distress. SKIN: Warm, dry, left knee with dressing c/d/i. EYES: Pupils equal round and reactive, no scleral edema or drainage CARDIOVASCULAR: Regular rate and rhythm without murmurs, gallops, or rubs. RESPIRATORY: Clear to auscultation. Breath sounds equal bilaterally. No wheezes , rales, or rhonchi. GASTROINTESTINAL: Abdomen soft, non-tender, nondistended. Normal active bowel sounds MUSCULOSKELETAL: Extremities without clubbing, cyanosis. Mild edema to left knee , improved improved ROM. Dressing c/d/i. NEURO: Alert & Oriented x4 to person, place, time, situation. Results Procedures completed during hospitalization: Left knee arthrotomy with washout for ? septic knee 08/17/[address] Pablo Kamala Labs on day of discharge: Labs from last 24 hours 08/21/18 21:45 Vancomycin Trough 6.7 - Impressions ITS Impressions Knee X-Ray 08/17/18 05:49 CONCLUSION: 1. Osteoarthritic findings of the knee with patellofemoral compartment predominance. 2. Large joint effusion with possible intra-articular osteochondral bodies. Venous Doppler Study 08/17/18 05:49 CONCLUSION: 1. The study is negative for lower extremity deep venous thrombosis. Knee CT 08/17/18 07:39 CONCLUSION: 1. Advanced tricompartmental osteoarthritis. 2. Moderate joint effusion. 3. Faint calcifications could relate to free bodies within the joint. I see no ostial defect but CT is very limited in evaluating for cartilaginous defects. MRI is more sensitive and specific for this evaluation. Aspiration 08/17/18 11:36 CONCLUSION: Uncomplicated ultrasound-guided left knee joint aspiration as above. Abdomen X-Ray 08/18/18 13:20 CONCLUSION: No evidence of significant ileus, free air or mass effect. Discharge Plan - Discharge Disposition Patient Disposition: /Home Health Service - Discharge Condition Condition: Stable - Discharge Order Discharge Orders: Discharge Order (Routine); Ordered 08/23/18 Ordered By: Yari Gordillo Orthopedic Clear for Discharge (Routine); Ordered 08/21/18 Ordered By: Venkatesh Lawson - Discharge Details Anticipated Discharge Date: 08/23/18 - Physicians Team Primary Care Provider: Primary Care Jhonathani,No Attending Provider: Yari Gordillo Other Providers: Pablo Wray MD ; Yandy Romero MD ; [employer], Insurance ; [facility],Agency ; [facility],Agency
[2018-08-22] MEDS ORDERED: Vancomycin Inj 1,500 MG in Sodium Chlor 0.9% Inj 500 ML IV.SIG SCH (16:00)
[2018-08-22] MEDS: Vancomycin Inj 1,500 MG in Sodium Chlor 0.9% Inj 500 ML IV.SIG SCH (17:14)
--- NOTE | 2018-08-22 18:00 | P.PN ---
Subjective Interval history: The patient is at the margin of the bed. She appears in not acute distress. She is able to ambulate. Pain is fairly controlled by medications. No fever or chills overnight. Had multiple bowel movements constipation resolved. No nausea or vomiting. Eating fairly well. No shortness of breath no wheezing. Physical Exam Vital signs: Vital Signs 08/21/18 20:00 08/22/18 00:00 08/22/18 08:00 Temperature 98.6 F 97.7 F 97.7 F Pulse Rate 64 65 74 Respiratory Rate 17 20 17 Blood Pressure 163/72 H 155/65 H 152/67 H Pulse Oximetry 97 97 95 08/22/18 12:00 08/22/18 16:00 Temperature 98.5 F 97.4 F L Pulse Rate 77 65 Respiratory Rate 17 17 Blood Pressure 130/61 153/70 H Pulse Oximetry 97 99 Intake & Output 08/21/18 08/22/18 08/22/18 18:59 06:59 18:59 Intake Total 1300 / 1300 1295 / 1295 Balance 1300 / 1300 1295 / 1295 Weight 88 kg 88 kg Intake: IV 515 / 515 Vancomycin Inj 1,500 MG In NS 515 / 515 Inj 500 ML @ 250 mls/hr IV.SIG Q24H SUSANNAH Rx#:[id number] Oral 1300 / 1300 780 / 780 Other: # Voids 7 2 Date of Last Bowel Movement 08/16/18 Narrative: GENERAL: Elderly female, well-nourished, well-developed patient, in no apparent distress. SKIN: Warm, dry, left knee with dressing c/d/i. EYES: Pupils equal round and reactive, no scleral edema or drainage CARDIOVASCULAR: Regular rate and rhythm without murmurs, gallops, or rubs. RESPIRATORY: Clear to auscultation. Breath sounds equal bilaterally. No wheezes , rales, or rhonchi. GASTROINTESTINAL: Abdomen soft, non-tender, nondistended. Normal active bowel sounds MUSCULOSKELETAL: Extremities without clubbing, cyanosis. Mild edema to left knee , limited ROM. Dressing c/d/i. NEURO: Alert & Oriented x4 to person, place, time, situation. Results - Labs CBC & Chem 7: 08/19/18 04:01 08/19/18 04:01 Laboratory Results - last 24 hr 08/21/18 21:45 Vancomycin Trough 6.7 Assessment and Plan - Assessment (1) Septic arthritis Code(s): M00.9 - Pyogenic arthritis, unspecified Status: Acute - Plan 77-year-old female with history of arthritis, hyperlipidemia, Mnire's disease , hypothyroid, COPD, breast cancer and hypertension presented to the ED with complaints of left knee pain. Septic arthritis, WBC 15.2 Orthopedics was consulted, Dr. Suazo took patient to the OR for Left knee arthrotomy with washout for septic knee -Pain management with PO [place] and IV morphine -PT eval -Cultures pending -ID consulted -DCd clindamycin IV. Continue vancomycin IV Consult PT and OT. HLD, chronic -Resume home medications -Cardiac diet Hypothyroid, chronic -Resume home medications HTN, chronic -Resume home medications -Monitor vitals Nausea and vomiting, resolved. Antiemetics as needed Constipation resolved. Continue bowel regiment as needed. DVT prophylaxis: SCDs, chemical prophylaxis per surgeon DC when improves and cleared by ID. Ortho cleared patient for DC. Plan to discharge possible tomorrow patient needs IV antibiotics vancomycin infusion orders done per infectious disease. Will need to check the vancomycin level. Plan to discharge tomorrow home with home health with IV antibiotics. Case management is also following for discharge plan.
[2018-08-22] MEDS: Montelukast 10 MG Tablet PO SCH (20:04)
[2018-08-22] MEDS: Zolpidem Tartrate 5 MG Tablet PO PRN (21:42)
[2018-08-23 00:54] VITALS: TEMP 97.8
[2018-08-23] MEDS: Levothyroxine 150 MCG Tablet PO SCH (05:07)
[2018-08-23] MEDS: Vancomycin Inj 1,500 MG in Sodium Chlor 0.9% Inj 500 ML IV.SIG SCH (10:36)
[2018-08-23] MEDS: Senna/Docusate Sodium 8.6/50 MG Tablet PO SCH (10:37)
[2018-08-23] MEDS: Multivitamin/Minerals Therapeutic Tablet PO SCH (10:37)
[2018-08-23] MEDS: ALPRAZolam 0.25 MG Tablet PO SCH (10:38)
--- NOTE | 2018-08-23 13:07 | P.PNID ---
Subjective Remarks: Wound culture from left knee aspirate has no growth - finasl Patient continues to have some pain in the knee. No fever. L knee with effusion aspirated: 25K WBC, Gstain now correccterd to NO ORG's culture is final - negative Presented with no fever, but + leukocytosis of 15 K Sp Left knee arthrotomy with washout for septic knee on 08/17/[address] Wray Antibiotics: vanco Past Medical History: Medical History (Last Reviewed 08/18/18 @ 13:09 by Yandy Romero MD) Arthritis Asthma Breast cancer COPD (chronic obstructive pulmonary disease) Degenerative disc disease HTN (hypertension) Hypercholesteremia Hypothyroid Menieres disease Allergies/Adverse Reactions: Allergies cefadroxil Allergy (Severe, Verified 08/31/17 09:27) HIVES morphine Allergy (Severe, Verified 08/31/17 09:27) VOMITING adhesive Adverse Reaction (Intermediate, Verified 08/31/17 09:27) PEELED OFF SKIN Objective Vital Signs 08/22/18 16:00 08/22/18 20:00 08/23/18 00:00 Temperature 97.4 F L 98.3 F 97.8 F Pulse Rate 65 74 68 Respiratory Rate 17 17 17 Blood Pressure 153/70 H 136/64 146/65 H Pulse Oximetry 99 97 95 08/23/18 08:00 Temperature 97.8 F Pulse Rate 68 Respiratory Rate 16 Blood Pressure 150/60 H Pulse Oximetry 98 Intake & Output 08/22/18 08/23/18 08/23/18 18:59 06:59 18:59 Intake Total 960 / 960 995 / 995 Balance 960 / 960 995 / 995 Weight 88 kg Intake: IV 515 / 515 Vancomycin Inj 1,500 MG In NS 515 / 515 Inj 500 ML @ 250 mls/hr IV.SIG Q18H SUSANNAH Rx#:[id number] Oral 960 / 960 480 / 480 Other: # Voids 5 2 Date of Last Bowel Movement 08/22/18 # Bowel Movements 7 08/17/18 20:30 Wound - Knee Gram Stain - Final 08/17/18 20:30 Wound - Knee Wound Culture - Final No growth in 72 hours (aerobically and anaerobically ) 08/17/18 20:30 Wound - Knee Gram Stain - Final 08/17/18 20:30 Wound - Knee Wound Culture - Final No growth in 72 hours (aerobically and anaerobically ) 08/17/18 12:20 Fluid - Synovial Fluid Gram Stain - Final 08/17/18 12:20 Fluid - Synovial Fluid Body Fluid Culture - Final No growth in 72 hours (aerobically and anaerobically ) Imaging: ITS Impressions Knee X-Ray 08/17/18 05:49 CONCLUSION: 1. Osteoarthritic findings of the knee with patellofemoral compartment predominance. 2. Large joint effusion with possible intra-articular osteochondral bodies. Venous Doppler Study 08/17/18 05:49 CONCLUSION: 1. The study is negative for lower extremity deep venous thrombosis. Knee CT 08/17/18 07:39 CONCLUSION: 1. Advanced tricompartmental osteoarthritis. 2. Moderate joint effusion. 3. Faint calcifications could relate to free bodies within the joint. I see no ostial defect but CT is very limited in evaluating for cartilaginous defects. MRI is more sensitive and specific for this evaluation. Aspiration 08/17/18 11:36 CONCLUSION: Uncomplicated ultrasound-guided left knee joint aspiration as above. Abdomen X-Ray 08/18/18 13:20 CONCLUSION: No evidence of significant ileus, free air or mass effect. Physical Exam: GENERAL: Alert and oriented, no acute distress. HEENT: Pupils reactive to light. Extraocular movements intact. No icterus. NECK: Supple without adenopathy. No swelling. LUNGS: Clear to auscultation. HEART: Regular S1 and S2 without murmurs. ABDOMEN: Soft, nontender. EXTREMITIES: minimal swelling dressing intact, incision clear no ertyehma SKIN: No rash. NEUROLOGIC: Nonfocal. PSYCH: Calm and cooperative. Assessment and Plan - Plan Doubt L septic knee arthritis clin pic/ lab findings cw hemathrosis bloody effusion 25K WBC/1 MLN RBC noprior abx u gram stain initially reported as +, now corrected to no org's Cultures were negative - final dw pt. No travel. No exposures. No unusual eating habits Recommendation: dc abx fu with Dr Wray case dw Dr Wray dw Dr Wray dw pt : pt was instructed to report immediately new/ worsening /non resolving swelling, redness dw case mngr Remove PICC ;ine
[2018-08-23 13:58] VITALS: BP 142/67; PULSE 74; RESP 18; O2SAT 96
[2018-08-24] MEDS ORDERED: Pharmacy Ordered Lab Info OTHER ONE (03:45)
== END 2018-08-23 17:11 | disposition home health service (06) ==
LOC: NEDA 04:54 → NEPC 04:54 → NEDA 19:30 → HPAC 20:05 → N07 22:20
PROVIDERS: ADMIT Hospitalist; ATTEND Hospitalist